=== PATIENT | male | born 1975 | race Caucasian/White ===

== ENCOUNTER 2018-07-18 10:24 | Inpatient (IN) | payer OTHER ==
[~2018-07-18] VITALS: Ht 190.5 cm; Wt 143.8 kg
[2018-07-18] VITALS (16 sets, daily range): BP systolic 123–171; BP diastolic 67–102
[~2018-07-18 10:24] MED LIST: ACETAMINOPHEN650 M5 PO; AMOXICILLIN 50500 MG PO; ANCEF 1GM1 GM/50 M2 IVPB; CLEOCIN HCL300 MG PO; COLACE100 MG PO; CUBICIN IVPB; DOXYCYCLINE 10100 M2 PO; FLEXERIL PO; FLORANEX PACKET1 GM PO; HYDROCODON-ACE1 EAC7 PO; IBUPROFEN 800800 M1 PO; INVANZ 1GM/NS 101 GM IVPB; LANTUS SUBQ; LEVEMIR100 UNIT/1 SQ; LISINOPRIL10 MG PO; LISINOPRIL20 MG PO; NORCO 5-325 TA1 EACH PO; NOVOLIN R100 UNIT/1 SQ; NOVOLOG100 UNIT/1 SUBQ; OXYCODONE-ACET1 EACH PO; PREDNISONE 20 M20 MG PO; PREDNISONE50 MG PO; TUMS PO; VALIUM5 MG PO; VENTOLIN17 GM INH; ZESTRIL10 MG PO; ZPAK PO
[2018-07-18] MEDS ORDERED: LANTUS100 UNIT/M SUBQ (10:32)
[2018-07-18] MEDS ORDERED: LISINOPRIL10 MG PO (10:32)
[2018-07-18] MEDS ORDERED: HUMALOG100 UNIT/1 SUBQ (10:32)
[2018-07-18 10:42] LABS: ABSOLUTE BASOPHILS 0.1 thou/uL (0.0-0.2); ABSOLUTE EOSINOPHILS 0.2 thou/uL (0.0-0.7); ABSOLUTE LYMPHOCYTES 2.3 thou/uL (0.8-5.3); ABSOLUTE MONOCYTES 0.9 thou/uL (0.0-1.2); ABSOLUTE NEUTROPHILS 6.1 thou/uL (1.6-8.1); BASOPHILS 0.6 %; EOSINOPHILS 2.1 %; HEMATOCRIT 37.2 % (42.0-52.0); HEMOGLOBIN 12.8 gm/dL (14.0-18.0); LYMPHOCYTES 24.4 %; MCH 30.7 pg (26.0-34.0); MCHC 34.4 g/dL (28.0-37.0); MCV 89.4 fL (80.0-100.0); MONOCYTES 9.7 %; MPV 8.4 fl. (7.2-11.1); NUCLEATED RBCS 0 /100WBC; PLATELET COUNT* 235 thou/uL (150-400); POLYS 63.2 %; RBC 4.16 mil/uL (4.50-6.00); RDW-CV 13.4 % (10.5-14.5); WBC 9.6 thou/uL (4.0-11.0)
[2018-07-18 10:54] LABS: CALCIUM 8.3 mg/dL (8.5-10.1); CREATININE 1.3 mg/dL (0.6-1.3); POTASSIUM 4.7 mmol/L (3.5-5.1)
[2018-07-18 10:55] LABS: APTT 30.1 Seconds (25.0-31.3); PROTIME 9.9 Seconds (9.20-11.50)
[2018-07-18 11:10] LABS: ALBUMIN 2.6 g/dL (3.4-5.0); CK-MB MASS 15.4 ng/mL (<0.5-3.6); MAGNESIUM 1.9 mg/dL (1.8-2.4); TOTAL BILIRUBIN 0.2 mg/dL (<0.1-1.0)
[2018-07-18 11:12] LABS: TROPONIN-I LEVEL 7.18 ng/mL (<0.06)
--- NOTE | 2018-07-18 17:05 | EKG ---
[place] [address] ELECTROCARDIOGRAM REPORT Name: MARKEL LAZAR Room: [address] ADM IN M.R.#: [id number] Admission: 07/18/18 Attend Phys: Aissatou Stapleton Discharge: Date of : 79 Report #: [id number] THIS REPORT FOR: //name// [facility] ED Test Date: 2018-07-18 Test Time: 10:28:39 Pat Name: MARKEL LAZAR Department: Room: [facility] Gender: M Desk Manager: MEDARDO : 1975 Requested By: Lucian Purvis Order Number: [id number] MD: Antonio Jaramillo Measurements Intervals [place] Rate: 107 P: 65 ME: 140 QRS: 56 QRSD: 106 T: 253 QT: 331 QTc: 442 Interpretive Statements Sinus tachycardia Inferior Q waves noted ST elevation, consider early repolarization Lateral leads are also involved Consider left ventricular hypertrophy Baseline wander in lead(s) V2 Compared to ECG 07/07/2016 15:03:53 Sinus rhythm no longer present Left ventricular hypertrophy no longer present ST (T wave) deviation still present Electronically Signed On 07-18-2018 17:05:27 CDT by Antonio Jaramillo [email or web address] <ELECTRONICALLY SIGNED> By: Antonio Jaramillo MD, FACC 07/18/18 1705 1028 1028 Antonio Jaramillo MD, FACC /EPI
[2018-07-19] VITALS (7 sets, daily range): BP systolic 112–162; BP diastolic 62–102
--- NOTE | 2018-07-19 00:35 | NUR ---
PT UP OUT OF BED AT 2145. L GROIN SOFT NO HEMATOMA. L GROIN DRSG D/I. HYDROCODONE GIVEN FOR BACK PAIN WITH MINIMAL RELIEF. MORPHINE ONE TIME DOSE GIVEN. PT REPORTED PAIN CONTROLLED FROM 04/26 TO 12/25. TELEMETRY SHOWS ST. L FOOT DRSG D/I. PT RESTING WITH EYES CLOSED.
[2018-07-19 05:23] LABS: HEMATOCRIT 35.9 % (42.0-52.0); HEMOGLOBIN 11.8 gm/dL (14.0-18.0); MCH 29.9 pg (26.0-34.0); MCHC 32.9 g/dL (28.0-37.0); MCV 90.8 fL (80.0-100.0); MPV 9.1 fl. (7.2-11.1); RBC 3.96 mil/uL (4.50-6.00); RDW-CV 13.4 % (10.5-14.5); WBC 11.6 thou/uL (4.0-11.0)
--- NOTE | 2018-07-19 05:45 | NUR ---
PT HAD TWO EPISOIDS OF NAUSIA WITH SMALL AMT OF CLEAR EMESIS. ZOFRAN GIVEN THE FIRST EPISOID. PROMETHAZINE GIVEN WITH THE SECOND EPISOID. PT RESTING QUIETLY. ALSO NOTED PT'S RESPIRATIONS WITH SLEEP ARE IRREGULAR. SHALLOW RESPIRATIONS FOLLOWED BY DEEP RESPIRATIONS.
[2018-07-19 05:54] LABS: ALBUMIN 2.5 g/dL (3.4-5.0); ALKALINE PHOSPHATASE 77 U/L (46-116); ANION GAP 9 mmol/L (7-16); BUN 31 mg/dL (7-18); CHLORIDE 105 mmol/L (98-107); CHOLESTEROL 149 mg/dL (<200); CO2 24 mmol/L (21-32); CREATININE 1.5 mg/dL (0.6-1.3); GLUCOSE 237 mg/dL (70-99); HDL CHOLESTEROL 33 mg/dL (>40); LDL CHOLESTEROL 93 mg/dL (<100); POTASSIUM 4.5 mmol/L (3.5-5.1); SGOT 59 U/L (15-37); SGPT 31 U/L (30-65); SODIUM 138 mmol/L (136-145); TC:HDL 4.5 Ratio (Not establshd); TOTAL BILIRUBIN 0.3 mg/dL (<0.1-1.0); TOTAL PROTEIN 6.8 g/dL (6.4-8.2); TRIGLYCERIDE 119 mg/dL (<150); VLDL 24 mg/dL (<40)
[2018-07-19 05:57] LABS: SERUM ASSESSMENT CLEAR; TROPONIN-I LEVEL 14.31 ng/mL (<0.06)
--- NOTE | 2018-07-19 06:52 | NUR ---
PT HAD A THIRD EPISOID OF NAUSIA WITH SMALL AMT CLEAR EMESIS. ZOFRAN GIVEN. SPOKE WITH DR HERNANDEZ RE: EMESIS WITH NO CHEST OR BACK PAIN SINCE LAST NIGHT WHEN ON BED REST. AND REPORTED AM LABS INCLUDING TOPONIN. NO ORDERS AT THIS TIME.
--- NOTE | 2018-07-19 09:21 | NUR ---
ASSUMED CARE OF PT AROUND 0730 THIS AM. REFER TO ASSESSMENT. PT C/O NAUSEA THIS AM. IV ZOFRAN ADMINISTERED. INSTRUCTED TO ATTEMPT TO EAT BREAKFAST. PT HAS NO C/O CP THIS AM. CONCERNED WE ARE GIVING HIM MUCH LESS INSULIN THAN HE REQUIRES AT HOME. WILL DISCUSS WITH PHYSICIAN. AT BEDSIDE WITH MULTIPLE QUESTIONS. NO OTHER CONCERNS AT THIS TIME. CLWR. WCTM.
--- NOTE | 2018-07-19 11:18 | NUR ---
Pt is A&O. Resides at home with . Independent with ADLs, continues to work outside of the home. No DME. No hx of HH or SNF. Goal is home at ok. Following.
--- NOTE | 2018-07-19 12:01 | NUR ---
WOUND CARE NOTE: CONSULT RECEIVED FOR WOUND ON LEFT FOOT. PATIENT PRESENTS WITH A DIABETIC FOOT ULCER TO THE PLANTAR SURFACE OF HIS LEFT FOOT AT THE 3-5 METATARSAL HEADS. TORY-WOUND IS CALLUSED. WOUND BED WITH 90% DRY, BLACK ESCHAR. EDGE OF ESCHAR IS SOFTENING AND YELLOW. ESCHAR IS NOT STABLE. WOUND EDGE WITH THE REMAINING 10% MOIST, RED TISSUE. WOUND IS DRAINING SMALL AMOUNTS OF SEROUS DRAINAGE. WOUND MEASURES 3X3.1X0.4. FAMILY MEMBER IN ROOM STATES THEY HAD BEEN CHANGING IT EVERY OTHER DAY AT HOME WITH [employer]. CLEANSED WOUND WITH WOUND CLEANSER, PATTED DRY. SINCE THE WOUND IS NOW DRY, APPLIED SILVER MED GEL IN HOPES OF SOFTENING THE ESCHAR SINCE IT IS UNSTABLE. COVERED WITH 4X4 THEN ABD. SECURED WITH KERLIX AND ZOË. EDUCATED PATIENT AND FAMILY MEMBER IN ROOM ABOUT IMPORTANCE OF KEEPING OFF ULCERATION IN PROMOTION OF HEALING, COMMUNICATED UNDERSTANDING. ALSO SPOKE TO THEM ABOUT NUTRTION AND IMPORTANCE OF TIGHT BLOOD GLUCOSE CONTROL, COMMUNICATED UNDERSTANDING. SPOKE TO SUGAR REPROCESS OPERATOR HEAD AND UPDATED ON FINDINGS. NO NEW ORDERS AT THIS TIME, HE WILL BE BY LATER TODAY TO ASSESS WOUND. RECOMMEND DEBRIDEMENT TIGHT BLOOD GLUCOSE CONTROL ENCOURAGE GOOD NUTRTION/HYDRATION
--- NOTE | 2018-07-19 12:02 | EKG ---
[place] [address] ELECTROCARDIOGRAM REPORT Name: MARKEL LAZAR Room: [address] ADM IN M.R.#: [id number] Admission: 07/18/18 Attend Phys: Aissatou Stapleton Discharge: Date of : 79 Report #: [id number] THIS REPORT FOR: //name// [facility] Test Date: 2018-07-18 Test Time: 17:06:23 Pat Name: MARKEL LAZAR Department: Room: [address] Gender: M Family Court Counsellor: UN : 1975 Requested By: Paolo Rubio Order Number: [id number] Justo MD: Markel Metz Measurements Intervals [place] Rate: 103 P: 72 MS: 146 QRS: 56 QRSD: 97 T: 240 QT: 337 QTc: 441 Interpretive Statements Sinus tachycardia Inferior infarct, age indeterminate Abnrm T, consider ischemia, anterolateral lds ST elevation, anterior leads Compared to ECG 07/18/2018 10:28:39 ST (T wave) deviation still present Electronically Signed On 07-19-2018 12:01:55 CDT by Markel Mezt [email or web address] <ELECTRONICALLY SIGNED> By: Markel Metz MD, [facility] 07/19/18 1201 1706 1706 Markel Metz MD, [facility] /EPI
--- NOTE | 2018-07-19 12:10 | EKG ---
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 07/19/18 1210 357 7 Markel Metz MD, FACC /EPI
--- NOTE | 2018-07-19 16:57 | NUR ---
PT SOMEWHAT PROGRESSING TOWARDS GOALS THIS SHIFT. PODIATRY CONSULT NOT COMPLETED AT THIS TIME. PT HAS BEEN HAVING NAUSEA. IV PHENERGEN EFFECTIVE AT THIS TIME. PT DROWSY. HAS ONLY TOLERATED SOME ICE CHIPS AND A COUPLE OF BITES OF JELLO. AT BEDSIDE. NO OTHER CONCERNS AT THIS TIME. CLWR. WCTM.
--- NOTE | 2018-07-19 18:34 | NUR ---
DR. CONNELLY TOY PAINTER AT BEDSIDE AND REPORTS WOUND TO E FOOT IS HEALING AND SHOWING PROGRESS. PHYSICIAN HAS NO NEW ORDERS AT THIS TIME.
--- NOTE | 2018-07-19 23:12 | NUR ---
ASSUMED PT CARE. REPORT RECEIVED FROM NURSE. PT IS AOX4 SINUS RYTHM ON THE MONITOR. AT BEDSIDE. IV FLUID. IV LINE PATENT . PHENERGAN GIVEN TO PREVENT NAUSEA AND VOMITING. PT STATES HE FEELS NAUSEOUS. INSULIN ADMINISTERED. WILL CONITNUE TO MONITOR.
[2018-07-20 00:13] VITALS: BP 141/87
[2018-07-20 05:09] LABS: CALCIUM 8.3 mg/dL (8.5-10.1); CREATININE 1.6 mg/dL (0.6-1.3); POTASSIUM 3.8 mmol/L (3.5-5.1)
[2018-07-20 08:27] VITALS: BP 180/108
--- NOTE | 2018-07-20 11:01 | CARD ---
[address] [address] CARDIAC CATH REPORT Name: NAGIMARKEL ALLYSON Room: [address] ADM IN .R.#: [id number] Admission: 07/18/18 Attend Phys: Aissatou Stapleton Discharge: Date of : 79 Report #: [id number] THIS REPORT FOR: //name// APPROVED REPORT Study performed: 07/18/2018 13:18:23 Patient Details Patient Status: In-Patient Room #: 212 The patient is a 42 year-old male Event Personnel Paolo Rubio Postal Sorting Officer, Harry Salamanca (Iliana Florian Angela SUPERVISOR PLASTERING Monitor, Clarissa Ugarte RN RN, Christine Simmons RTR Monitor Procedures Performed ISHA Place w/wo Plasty Single RCA 061101 , Selective Right and Left Coronary AngiographyLeft Heart Cath w/or w/o Coronaries [id number] [facility] Hemostasis w/ Angioseal Indication Non-STEMI Risk Factors Hypercholesterolemia, Hypertension, Diabetes Admission/Lab Medications/Medications given during procedure Aspirin, Platelet Aff. Inhib., Angiomax bolus and infusion Procedure Narrative The patient was brought electively to the Cardiac Catheterization Laboratory and was prepped and draped in a sterile manner. The left femoral was infiltrated with 2% Lidocaine subcutaneous anesthesia. A [place] 6 FR sheath was inserted into the right femoral artery. Coronary angiography was performed using coronary diagnostic catheters. The right coronary system was accessed and visualized with a 6fr JR 4 catheter. The left coronary system was accessed and visualized with a 6fr JL 3.5 catheter. The left ventricle was accessed and visualized with a 6fr Pigtail catheter. Left ventricular/Aortic Valve gradient assessed via catheter pullback. Left ventriculogram was performed in MELARA projection. Pre-demployment femoral angiogram was performed . Closure device was deployed with a 6 Fr Angioseal STS 6Fr. The patient tolerated the procedure well and there were no complications [place] [address] CARDIAC CATH REPORT Name: MARKEL LAZAR Room: [address] IN [facility]#: [id number] Admission: 07/18/18 Attend Phys: Aissatou Stapleton Discharge: Date of : 79 Report #: [id number] Intraoperative Conscious Sedation Sedation start time: 14:13 Case end Time: 15:31 Fentanyl 150 mcg Versed 3 mg Fluoro Time: 14.1 minutes Dose: DAP 878706 cGycm2 2119.11 mGy Contrast Type and Amount: Visipaque 400 ml Coronary Angiography The patient's coronary anatomy is right dominant. Diagnostic Cath Left Main 0% narrowing LAD 90% mid vessel stenosis with 90% stenosis of the proximal portion of the prominent first diagonal branch Circumflex 70% proximal narrowing Right Coronary Large dominant vessel with 90% mid vessel narrowing and local thrombus at the site with 50% narrowing of the proximal portion of the posterior descending branch Left Ventriculography The left ventricle is normal in size with abnormal contractility. The left ventricular ejection fraction is estimated to be 40%. Left ventricular wall motion abnormalities are present. There is no mitral insufficiency. There is hypo- akinesis of the distal one half of the inferior wall Hemodynamics The aortic pressure is 135/86 mmHg with a mean of mmHg. The left ventricular pressure is 137/18 mmHg with a mean of mmHg. The left ventricular end diastolic pressure is 25 mmHg. There was no gradient across the aortic valve upon pullback. PCI Technique Lesion Anticoagulation was achieved with Angiomax. Percutaneous coronary intervention was performed on the mid right coronary artery. The lesion stenosis prior to intervention was 90% with ZEENAT 3 flow. A 6Fr AR 1 Guide Catheter was used to engage the ostium. A IG: ProwaterFlex 180CM Interventional Guidewire was used to cross the lesion. BALLOON DILATION A Balloon catheter Trek RX 2.5 X 12 was inserted and inflated up to 16.00atm for 21seconds. Additional Inflation: 12.00atm for 9seconds. [place] [address] CARDIAC CATH REPORT Name: MARKEL LAZAR Room: [address] IN M.R.#: [id number] Admission: 07/18/18 Attend Phys: Aissatou Stapleton Discharge: Date of : 79 Report #: [id number] STENT DEPLOYMENT A drug-eluting stent Xience Alpine RX 3.25X15 was inserted and inflated up to 12.00atm for 8seconds. Additional Inflation: 16.00atm for 10seconds. Additional Inflation: 18.00atm for 9seconds. POST STENT DEPLOYMENT BALLOON DILATION A Balloon catheter NC Trek RX 3.5 X 8 was inserted and inflated up to 16.00atm for 14seconds. Additional Inflation: 18.00atm for 8seconds. Additional Inflation: 17.00atm for 7seconds. Final angiography reveals 5 % stenosis with ZEENAT 3 flow. Conclusion #1 significant coronary artery disease characterized by the following: A 90% mid LAD stenosis with 90% stenosis of the proximal portion of the prominent first diagonal branch B 70% proximal circumflex narrowing, this being a nondominant vessel C large dominant right coronary artery with 90% stenosis in the midportion with local thrombus at the site and 50% narrowing of the proximal portion of the posterior descending branch #2 moderate impairment in global left ventricular systolic function, estimate ejection fraction being 40% with hypo- akinesis of the distal one half of the inferior wall #3 moderately severe elevation of left ventricular end-diastolic pressure at rest #4 successful percutaneous coronary intervention with deployment of a drug-eluting stent at site of 90% mid right coronary stenosis with 0% residual narrowing no residual thrombus and ZEENAT 3 flow to the distal vessel Recommendations Cardiac Risk Reduction Program Aggressive Medical Therapy Weight Loss Reduction Program [place] [address] CARDIAC CATH REPORT Name: MARKEL LAZAR Room: [address]#: [id number] Admission: 07/18/18 Attend Phys: Aissatou Stapleton Discharge: Date of : 79 Report #: [id number] Aspirin (any) Prasugrel Diagnostic Cath Approved by: Paolo Rubio MD Date/Time: 07/20/2018 11:00:22 <ELECTRONICALLY SIGNED> By: Paolo Rubio MD, FACC 07/20/18 1101 110 110Paolo Rubio MD, FACC /INF
[2018-07-20 11:25] VITALS: BP 180/108
[2018-07-20] MEDS ORDERED: ASPIR 8181 MG PO (11:46)
[2018-07-20] MEDS ORDERED: LIPITOR 20 MG T20 M1 PO (11:47)
[2018-07-20] MEDS ORDERED: CARVEDILOL3.125 MG PO (11:48)
[2018-07-20] MEDS ORDERED: EFFIENT10 MG PO (11:50)
[2018-07-20 12:00] VITALS: BP 152/99
[2018-07-20] MEDS ORDERED: LANTUS SUBQ (12:15)
[2018-07-20 12:48] VITALS: BP 152/99
--- NOTE | 2018-07-20 13:10 | NUR ---
PT AND SPOUSE VERBALIZED UNDERSTANDING OF DC MEDICATIONS AND INSTRUCTIONS. PT WAS EDUCATED ABOUT TAKING PIX OF MED LIST AND DEVICE INFORMATION AND KEEPING IT ON CELL PHONE SO THAT THE INFORMATION IS ALWAYS READILY AVAILABLE. PT REFUSED DOSE OF INSULIN STATING HE WOULD TAKE HIS BLOOD SUGAR WHEN HE GOT HOME AND TAKE INSULIN THEN. PT PROVIDED WITH ANOTHER DOSE OF BETA ISRRAEL PER PHYSICIAN ORDER. PT VSS THIS SHIFT AND NO REPORTS OF PAIN. HOURLY ROUNDING MAINTAINED. PT REQUESTING WHEELCHAIR TO DISCHARGE, WILL GET ONE AND ASSIST PT OUT OF HOSPITAL
--- NOTE | 2018-08-02 18:41 | CON ---
[address] [address] CONSULTATION Name: MARKEL LAZAR Room: [address] IN M.R.#: [id number] Admission: 07/18/18 Attend Phys: Aissatou Stapleton Discharge: 07/20/18 Date of : 79 Report #: [id number] THIS REPORT FOR: //name// CC: Ruma Kay HISTORY OF PRESENT ILLNESS: This is a 42-year-old white male who has been admitted to [facility] for a chief complaint of intermittent chest pain times 1.5 months. He had a stent placed yesterday. HISTORY OF PRESENT ILLNESS: This is a 42-year-old white male, diabetic, who was admitted to [facility] for an NSTEMI. I am being consulted for his left plantar diabetic foot ulcer. The patient and I are very familiar with each other. I have been treating his left diabetic foot ulcer some time now. He has made nice improvements over the last week or so. PAST MEDICAL HISTORY: Is in the chart and will be reviewed. He is diabetic, history of back problems, hypertension. HOME MEDICATIONS: Amoxicillin, lisinopril, insulin. ALLERGIES: Vancomycin. FAMILY HISTORY: Unremarkable. SOCIAL HISTORY: No history of alcohol, tobacco or drug use. REVIEW OF SYSTEMS: Noncontributory. PHYSICAL EXAMINATION: GENERAL: Well-developed, well-nourished white male in no acute distress. EXTREMITIES: Upper extremity has been worked up by the hospitalist in ER and Cardiology. Lower extremity reveals a wound to the plantar left foot that I have been treating. It was significant size, approximately 6 cm in its greatest size, now is approximately 2.5 cm to 3 cm in diameter with no surrounding erythema. It is very healthy looking tissue. No edema in the area. . White blood cell count 11.4. Previous x-rays taken by myself showed no signs of bone involvement. ASSESSMENT: Diabetic foot ulcer, [place] 2[place] [address] CONSULTATION Name: MARKEL LAZAR Room: [address] M.R.#: [id number] Admission: 07/18/18 Attend Phys: Aissatou Stapleton Discharge: 07/20/18 Date of : 79 Report #: [id number] PLAN: We will continue same plan. The patient has been healing quite nicely for the last 2 weeks. He will be discharged probably from the hospital tomorrow and see me in my clinic on Sunday. We shall debride any necrotic tissue. No need for Santyl at this time. We will do the same dressing for Aquacel Ag and foam and then a Joanna dressing. No need for MRI at this time either. The patient has been healing quite nicely and I saw him from the beginning and until now. Thank you for this consultation. Please call if you have any concerns or questions. My longer plan will be a total contact cast and more treatment plans after my debridement in office on Sunday. <ELECTRONICALLY SIGNED> By: Sahw Lainez DPM 08/02/18 1841 [id number] Lainez DPM /nt
== END 2018-07-20 13:25 | disposition home or self-care (01) | DRG 247 ==
LOC: M.ERS 10:24 → M.TBA-ER 12:26 → M.2W 12:26
PROVIDERS: Family Medicine; Internal Medicine; ADMIT Internal Medicine
PROC: 027034Z Dilation of Coronary Artery, One Artery with Drug-eluting Intraluminal Device, Percutaneous Approach (ICD-10-PCS; principal; 2018-07-18)
PROC: B211YZZ Fluoroscopy of Multiple Coronary Arteries using Other Contrast (ICD-10-PCS; principal; 2018-07-18)
PROC: 4A023N7 Measurement of Cardiac Sampling and Pressure, Left Heart, Percutaneous Approach (ICD-10-PCS; principal; 2018-07-18)
PROC: B215YZZ Fluoroscopy of Left Heart using Other Contrast (ICD-10-PCS; principal; 2018-07-18)
DX: I21.4 Non-ST elevation (NSTEMI) myocardial infarction (principal); I10 Essential (primary) hypertension; E11.621 Type 2 diabetes mellitus with foot ulcer; E11.51 Type 2 diabetes mellitus with diabetic peripheral angiopathy without gangrene; Z89.412 Acquired absence of left great toe; Z88.1 Allergy status to other antibiotic agents; Z79.82 Long term (current) use of aspirin; Z79.899 Other long term (current) drug therapy; Z79.4 Long term (current) use of insulin; Z82.49 Family history of ischemic heart disease and other diseases of the circulatory system; Z80.1 Family history of malignant neoplasm of trachea, bronchus and lung

== ENCOUNTER 2018-07-29 07:58 | Observation (INO) | payer OTHER ==
[2018-07-29] VITALS (17 sets, daily range): BP systolic 121–155; BP diastolic 72–817
[~2018-07-29] VITALS: Ht 190.5 cm; Wt 127.0 kg
--- NOTE | ~2018-07-29 | H ---
[address] [address] HISTORY AND PHYSICAL Name: MARKEL LAZAR Room: [address] Apryl Vallejo#: [id number] Admission: 07/29/18 Attend Phys: Paolo Rubio MD, Discharge: 07/30/18 Date of : 79 Report #: [id number] THIS REPORT FOR: //name// Please refer to the History and Physical performed in the physician's office. By: 1618Medical Records Staff LILIA /ALBERT
[~2018-07-29 07:58] MED LIST changes: +ASPIR 8181 MG PO; +CARVEDILOL3.125 MG PO; +EFFIENT10 MG PO; +HUMALOG100 UNIT/1 SUBQ; +LANTUS100 UNIT/M SUBQ; +LIPITOR 20 MG T20 M1 PO
[2018-07-29] MEDS ORDERED: COREG6.25 MG PO (08:25)
[2018-07-29] MEDS ORDERED: LISINOPRIL20 MG PO (08:26)
[2018-07-29] MEDS ORDERED: BACTRIM DS TAB1 EACH PO (08:28)
[2018-07-29 08:36] LABS: HEMATOCRIT 37.9 % (42.0-52.0); HEMOGLOBIN 12.8 gm/dL (14.0-18.0); MCHC 33.7 g/dL (28.0-37.0); MCV 89.1 fL (80.0-100.0); MPV 9.3 fl. (7.2-11.1); RBC 4.25 mil/uL (4.50-6.00); RDW-CV 13.5 % (10.5-14.5); WBC 12.8 thou/uL (4.0-11.0)
[2018-07-29 08:42] LABS: ANION GAP 10 mmol/L (7-16); BUN 32 mg/dL (7-18); CALCIUM 8.8 mg/dL (8.5-10.1); CHLORIDE 104 mmol/L (98-107); CO2 23 mmol/L (21-32); CREATININE 1.6 mg/dL (0.6-1.3); GLUCOSE 135 mg/dL (70-99); POTASSIUM 4.6 mmol/L (3.5-5.1); SODIUM 137 mmol/L (136-145)
[2018-07-29 08:45] LABS: APTT 26.3 Seconds (25.0-31.3); INR 0.9; PROTIME 9.6 Seconds (9.20-11.50)
[2018-07-29 08:46] LABS: ALBUMIN 2.7 g/dL (3.4-5.0); ALKALINE PHOSPHATASE 79 U/L (46-116); CHOLESTEROL 127 mg/dL (<200); HDL CHOLESTEROL 39 mg/dL (>40); LDL CHOLESTEROL 54 mg/dL (<100); SERUM ASSESSMENT Clear; SGOT 18 U/L (15-37); SGPT 28 U/L (30-65); TC:HDL 3.3 Ratio (Not establshd); TOTAL BILIRUBIN 0.2 mg/dL (<0.1-1.0); TOTAL PROTEIN 7.1 g/dL (6.4-8.2); TRIGLYCERIDE 170 mg/dL (<150); VLDL 34 mg/dL (<40)
[2018-07-29] MEDS ORDERED: NOVOLOG100 UNIT/1 SUBQ ×2 (15:54)
--- NOTE | 2018-07-29 18:14 | NUR ---
PT ADMITTED AFTER CARDIAC CATH WITH STENTS X5. L GROIN INSERTION SITE. GAUZE DRESSING WITH SMALL AMOUNT OF BLOOD. SITE SOFT, MILDLY TENDER, NO BRUISING NOTED. TELE SR, HRR. PT LAID WITH L LEG STRAIGHT UNTIL 1800. SULLIVAN REMOVED. PT UP INDEPENDENTLY WITH STEADY GAIT. PT HAS CAST AND WALKING SHOE ON L FOOT. PT REPORTS A DIABETIC ULCER ON BOTTOM OF L FOOT THAT IS MANAGED BY WOUND CARE AT [facility]. UNABLE TO OBTAIN PICTURE OF WOUND D/T CAST. PT C/O CHRONIC PAIN IN LOW BACK. TYLENOL GIVEN WITH PARTIAL RELIEF ON REASSESSMENT. AT BEDSIDE. PT ABLE TO MAKE NEEDS KNOWN, CALL LIGHT IN REACH.
[2018-07-30] VITALS: BP 128/65
[2018-07-30 04:00] VITALS: BP 138/77
[2018-07-30 05:32] LABS: HEMATOCRIT 32.9 % (42.0-52.0); HEMOGLOBIN 11.3 gm/dL (14.0-18.0); MCH 30.7 pg (26.0-34.0); MCHC 34.3 g/dL (28.0-37.0); MCV 89.7 fL (80.0-100.0); MPV 9.2 fl. (7.2-11.1); RBC 3.67 mil/uL (4.50-6.00); RDW-CV 13.2 % (10.5-14.5)
--- NOTE | 2018-07-30 06:14 | NUR ---
PATIENT PARTIALLY PROGRESSING TOWARDS GOALS: PATIENT HAD AN EPISODE OF CHEST PAIN/DISCOMFORT WITH NAUSEA AND DRY HEAVES THIS SHIFT, RELIEVED WITH RELAXATION AND MEDICATION. PATIENT'S REMAINS AT BEDSIDE. HOURLY ROUNDING OBSERVED. CALL LIGHT WITHIN REACH
[2018-07-30 06:24] LABS: ALBUMIN 2.3 g/dL (3.4-5.0); CALCIUM 8.4 mg/dL (8.5-10.1); CREATININE 1.6 mg/dL (0.6-1.3); POTASSIUM 5.1 mmol/L (3.5-5.1); TOTAL BILIRUBIN 0.3 mg/dL (<0.1-1.0); TOTAL PROTEIN 6.2 g/dL (6.4-8.2)
[2018-07-30 06:28] LABS: TROPONIN-I LEVEL 1.15 ng/mL (<0.06)
[2018-07-30 07:45] VITALS: BP 144/84
[2018-07-30 09:56] VITALS: BP 151/92
--- NOTE | 2018-07-30 11:19 | EKG ---
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[facility] 1975 Requested By: Paolo Rubio Order Number: [id number] Reading MD: Marvin Fields Measurements Intervals [place] Rate: 93 P: 97 [place]: 146 QRS: 45 QRSD: 117 T: 251 QT: 367 QTc: 457 Interpretive Statements Sinus rhythm Probable LVH with secondary repol abnrm Inferior infarct, age indeterminate Anterior ST elevation, probably due to LVH Compared to ECG 07/19/2018 03:58:57 Left ventricular hypertrophy now present Possible ischemia no longer present Myocardial infarct finding still present ST (T wave) deviation still present Electronically Signed On 07-30-2018 11:19:24 AFTER SCHOOL COUNSELOR by Marvin Fields [email or web address] <ELECTRONICALLY SIGNED> By: Marvin Fields MD, FACC 07/30/18 1119 0843 0843 Marvin Fields MD, FACC /EPI
--- NOTE | 2018-07-30 11:20 | EKG ---
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[facility] 1975 Requested By: Paolo Rubio Order Number: [id number] Reading MD: Marvin Fields Measurements Intervals [place] Rate: 89 P: 82 [place]: 145 QRS: 48 QRSD: 103 T: 261 QT: 373 QTc: 454 Interpretive Statements Sinus rhythm Probable LVH with secondary repol abnrm Inferior infarct, age indeterminate Anterior ST elevation, probably due to LVH Compared to ECG 07/19/2018 03:58:57 Left ventricular hypertrophy now present Possible ischemia no longer present Myocardial infarct finding still present ST (T wave) deviation still present Electronically Signed On 07-30-2018 11:20:35 VALIDATION TECHNICIAN by Marvin Fields [email or web address] <ELECTRONICALLY SIGNED> By: Marvin Fields MD, FACC 07/30/18 1120 121 1212 Marvin Fields MD, FACC /EPI
--- NOTE | 2018-07-30 11:22 | EKG ---
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 : 1975 Requested By: Paolo Rubio Order Number: [id number] Reading MD: Marvin Fields Measurements Intervals [place] Rate: 101 P: 74 [place]: 147 QRS: 59 QRSD: 112 T: -83 QT: 356 QTc: 462 Interpretive Statements Sinus tachycardia Inferior infarct, age indeterminate Abnrm T, consider ischemia, anterolateral lds Compared to ECG 07/19/2018 03:58:57 Sinus rhythm no longer present ST (T wave) deviation no longer present Myocardial infarct finding still present Possible ischemia still present Electronically Signed On 07-30-2018 11:21:43 ROLLER REPAIRER by Marvin Fields [email or web address] <ELECTRONICALLY SIGNED> By: Marvin Fields MD, FAC 07/30/18 1121 0331 033 Marvin Fields MD, FAC /EPI
--- NOTE | 2018-07-30 16:40 | D ---
[address] [address] DISCHARGE SUMMARY Name: MARKEL LAZAR ALLYSON Room: [address] Apryl Vallejo#: [id number] Admission: 07/29/18 Attend Phys: Paolo Rubio MD, Discharge: 07/30/18 Date of : 79 Report #: [id number] THIS REPORT FOR: //name// CC: Paolo Cosmegie [facility] DATE OF SERVICE: 07/30/2018 FINAL DISCHARGE DIAGNOSES: 1. Unstable angina. 2. Status post recent acute myocardial infarction. 3. Status post prior percutaneous coronary intervention of the right coronary artery with percutaneous coronary intervention of the left anterior descending, diagonal, circumflex, and right coronary artery on 07/29/2018. 4. Type 2 diabetes. 5. Exogenous obesity. 6. Hyperlipoproteinemia. PROCEDURES: 07/29/2018 -- left heart catheterization, selective coronary arteriography and percutaneous coronary intervention to the LAD, first diagonal, mid circumflex and mid right coronary artery. The patient is a very pleasant 42-year-old male with aggressive coronary artery disease who presented approximately 1 week ago with acute inferolateral myocardial infarction and underwent acute intervention to the right coronary artery with one drug-eluting stent deployed. He also had significant LAD, diagonal, circumflex, and right coronary artery stenoses noted at that time. He was left with an ejection fraction of 40-45% with inferolateral hypokinesis. The patient did reasonably well after the initial discharge, but did experience some chest pain consistent with recurrent angina. In that context, he underwent recatheterization on 07/29/2018 and that study revealed 90% bifurcation LAD diagonal disease, 80% tubular mid circumflex disease, and 60-70% narrowing appearing like a plaque protrusion through the previously deployed right coronary artery stent. I deployed one stent in the mid LAD, one in the first diagonal with a crush stent technique and a kissing balloon inflation at the end. I stented the circumflex with a 2.5 x 15 mm Drybranch stent, then I placed one 3.5 x 8 mm Xience Pat stent in the mid right coronary artery. There was a 10% residual LAD, 0% residual diagonal, 10% residual circumflex and 0% residual right coronary narrowing following the final stent deployment with ZEENAT 3 flow to all distal circulations. The patient did well post-procedurally and there was good hemostasis at the left femoral site of catheterization. Laboratory on 07/30/2018 revealed sodium 138, potassium 5.1, BUN 28, creatinine 1.6 (unchanged from preprocedural), white blood cell count 13,000, hemoglobin 11.3, hematocrit 12.9, [place] [address] DISCHARGE SUMMARY Name: MARKEL LAZAR Room: [place] [address] ARJUN Vallejo#: [id number] Admission: 07/29/18 Attend Phys: Paolo Rubio MD, Discharge: 07/30/18 Date of : 79 Report #: [id number] 226,000. Troponin gloria minimally to 1.15. The patient ambulated without difficulty in the hallways and was discharged to home on 07/30/2018 on the following medications: Aspirin 81 mg b.i.d., atorvastatin 40 mg daily, carvedilol 6.25 mg b.i.d., sliding scale insulin, home insulin is NovoLog 35 units a.c. and 75 units of Lantus insulin at bedtime, lisinopril 20 mg daily, prasugrel, Effient 10 mg daily with 30 mg sage-procedural dose on 07/29/2018, Bactrim-DS 1 tablet b.i.d. to complete a previously utilized dose, and p.r.n. sublingual nitroglycerin. The patient is scheduled to return to see my nurse practitioner, Macy Denney, on 08/06/2018 at 0830 and myself on 09/02/2018 at 1030. <ELECTRONICALLY SIGNED> By: Paolo Rubio MD, [facility] 07/30/18 1640 0931 1230Paolo Rubio MD, FACC /nt
--- NOTE | 2018-08-05 13:01 | CARD ---
[address] [address] CARDIAC CATH REPORT Name: MARKEL LAZAR ALLYSON Room: [address] Apryl Vallejo#: [id number] Admission: 07/29/18 Attend Phys: Paolo Rubio MD, Discharge: 07/30/18 Date of : 79 Report #: [id number] THIS REPORT FOR: //name// APPROVED REPORT Study performed: 07/29/2018 09:04:08 Patient Details Patient Status: Out-Patient Room #: The patient is a 42 year-old male Event Personnel Paolo Rubio [facility] Counselor, Rin Peña RN Steel Hanger, Stephenie Victoria Monitor, Genaro Santoyo Scrub Procedures Performed Art Access - L femoral artery* , Selective Right and Left Coronary AngiographyLeft Heart Cath w/or w/o Coronaries [id number] [facility] ISHA Place w/wo Plasty Single DIAG 947170 ISHA Place w/wo Plasty Single LAD 099073 ISHA Place w/wo Plasty Single RCA 143541 ; PCI to CX Indication Unstable angina Risk Factors Family History, Hypercholesterolemia, Hypertension Previous Procedures/Diagnoses Previous PCI, Previous SD Admission/Lab Medications/Medications given during procedure Aspirin, Platelet Aff. Inhib., Angiomax bolus and infusion Procedure Narrative The patient was brought electively to the Cardiac Catheterization Laboratory and was prepped and draped in a sterile manner. The left femoral was infiltrated with 2% Lidocaine subcutaneous anesthesia. A [place] 6 FR sheath was inserted into the left femoral artery. Coronary angiography was performed using coronary diagnostic catheters. The right coronary system was accessed and visualized with a 6fr JR 4 catheter. The left coronary system was accessed and visualized with a JL 3.5 6fr catheter. The left ventricle was accessed and visualized with a 5fr Pigtail catheter. Left ventricular/Aortic Valve gradient assessed [place] [address] CARDIAC CATH REPORT Name: MARKEL LAZAR Room: [address] Apryl MMelina#: [id number] Admission: 07/29/18 Attend Phys: Paolo Rubio MD, Discharge: 07/30/18 Date of : 79 Report #: [id number] Pre-demployment femoral angiogram was performed . Closure device was deployed with a 6 Fr Angioseal STS 6Fr. The patient tolerated the procedure well and there were no complications associated with the procedure. There was no hematoma. Intraoperative Conscious Sedation Sedation start time: 09:34 Case end Time: 11:54 Fentanyl 100 mcg Versed 3 mg Fluoro Time: 38.5 minutes Dose: DAP 347935 cGycm2 5330.69 mGy Contrast Type and Amount: Visipaque 500 ml Coronary Angiography The patient's coronary anatomy is right dominant. Diagnostic Cath Left Main 0% narrowing LAD 60-70% proximal narrowing with 90% mid vessel stenosis and 90% stenosis of the proximal portion of the prominent first diagonal branch Circumflex 80% proximalmid circumflex stenosis Right Coronary Large dominant vessel with 40% proximal narrowing and 75% focal narrowing within a previously deployed mid right coronary stent Left Ventriculography Left Ventriculography was not performed. Hemodynamics The aortic pressure is 162/75 mmHg with a mean of mmHg. The left ventricular pressure is 137/15 mmHg with a mean of mmHg. The left ventricular end diastolic pressure is 29 mmHg. There was no gradient across the aortic valve upon pullback. PCI Technique Lesion Anticoagulation was achieved with Angiomax. Percutaneous coronary intervention was performed on the mid left anterior descending artery segment. The lesion stenosis prior to intervention was 90% with ZEENAT 3 flow. A 6FR XB 3.0 100CM Guide Catheter was used to engage the LCA ostium. A 6FR XB 3.0 100CM Interventional Guidewire was used to cross the lesion. BALLOON DILATION A Balloon catheter Mini Trek RX 2.0 X 12 was [place] [address] CARDIAC CATH REPORT Name: MARKEL LAZAR ALLYSON [address]: [address] [id number] Admission: 07/29/18 Attend Phys: Paolo Rubio MD, Discharge: 07/30/18 Date of : 79 Report #: [id number] to 10.00atm for 9seconds. Additional Inflation: 10.00atm for 14seconds. Additional Inflation: 8.00atm for 12seconds. STENT DEPLOYMENT A drug-eluting stent Vishal RX Stent 2.0X30mm was inserted and inflated up to 8.00atm for 12seconds. Additional Inflation: 10.00atm for 12seconds. Additional Inflation: 10.00atm for 11seconds. Final angiography reveals 0 % stenosis with ZEENAT 3 flow. PCI Technique Lesion 2 Percutaneous Coronary Intervention was performed on the first diagnonal branch segment. The lesion stenosis prior to intervention was 90% with ZEENAT 3 flow. Balloon Dilation A Balloon catheter Trek RX 2.5 X 12 was inserted and inflated up to 16.00atm for 15seconds. Additional Inflation: 20.00atm for 7seconds. Stent Deployment A drug-eluting stent Vishal RX Stent 2.75X8mm was inserted and inflated up to 12atm for 15seconds. Final angiography reveals 0 % stenosis with ZEENAT 3 flow. PCI Technique Lesion Percutaneous coronary intervention was performed on the first diagonal branch segment. BALLOON DILATION A Balloon catheter Trek RX 2.75 X 12 was inserted and inflated up to 10.00atm for 12seconds. Additional Inflation: 12atm for 9seconds. Additional Inflation: 14atm for 11seconds. STENT DEPLOYMENT A drug-eluting stent Vishal RX Stent 2.75X8mm was inserted and inflated up to 10.00atm for 9seconds. Additional Inflation: 12atm for 6seconds. POST STENT DEPLOYMENT BALLOON DILATION A Balloon catheter NC Trek RX 2.75 X 12 was inserted and inflated up to 12atm for 9seconds. Additional Inflation: 12atm for 12seconds. Additional Inflation: 12atm for 9seconds. PCI Technique Lesion [address] [address] CARDIAC CATH REPORT Name: MARKEL LAZAR GENE Room: 227-1 ARJUN TrujilloGaroEliud#: [id number] Admission: 07/29/18 Attend Phys: Paolo Rubio MD, Discharge: 07/30/18 Date of : 79 Report #: [id number] Percutaneous Coronary Intervention was performed on the proximal left anterior descending artery segment. The lesion stenosis prior to intervention was 75% with ZEENAT 3 flow. Balloon Dilation A Balloon catheter Trek RX 2.5 X 12 was inserted and inflated up to 12.00atm for 4seconds. Stent Deployment A drug-eluting stent Olyphant RX Stent 2.75 x 12mm was inserted and inflated up to 12atm for 4seconds. Additional Inflation: 8atm for 9seconds. Additional Inflation: 12atm for 6seconds. Final angiography reveals 0 % stenosis with ZEENAT 3 flow. PCI Technique Lesion 5 Percutaneous Coronary Intervention was performed on the proximalmid circumflex artery segment. The lesion stenosis prior to intervention was 80% with ZEENAT 3 flow. A 6FR XB 3.0 100CM Guide Catheter was used to engage the ostium. A IG: ProwaterFlex 180CM Interventional Guidewire was used to cross the lesion. Stent Deployment A drug-eluting stent Vishal RX Stent 2.5X15mm was inserted and inflated up to 12.00atm for 13seconds. Additional Inflation: 17.00atm for 10seconds. Additional Inflation: 17.00atm for 9seconds. Final angiography reveals 10 % stenosis with ZEENAT 3 flow. PCI Technique Lesion Percutaneous coronary intervention was performed on the mid right coronary artery. The lesion stenosis prior to intervention was 75% with ZEENAT 3 flow. A 6Fr AR 1 Guide Catheter was used to engage the ostium. A IG: ProwaterFlex 180CM Interventional Guidewire was used to cross the lesion. STENT DEPLOYMENT A drug-eluting stent Xience Pat 3.5X8mm was inserted and inflated up to 12atm for 11seconds. Additional Inflation: 14atm for 6seconds. Final angiography reveals 0 % stenosis with ZEENAT 3 flow. Conclusion #1 significant coronary artery disease characterized by the [address] [address] CARDIAC CATH REPORT Name: MARKEL LAZAR Room: [address] Apryl Vallejo#: [id number] Admission: 07/29/18 Attend Phys: Paolo Rubio MD, Discharge: 07/30/18 Date of : 79 Report #: [id number] following: A 60-70% proximal LAD stenosis with 90% mid vessel stenosis and 90% stenosis of the proximal portion of the prominent first diagonal branch B 80% narrowing of the proximalmid circumflex C 75% focal in-stent narrowing of the mid right coronary stent #2 minimal elevation of left ventricular end-diastolic pressure at rest #3 successful percutaneous coronary intervention with deployment of drug-eluting stents in the proximal and mid LAD and first diagonal with 0% residual narrowing at the 3 sites and ZEENAT-3 flow to the distal vasculature #4 successful percutaneous coronary intervention with deployment of drug-eluting stent at site of 80% proximalmid circumflex stenosis with 10% residual narrowing and ZEENAT-3 flow to the distal vessel #5 successful percutaneous coronary intervention with deployment of drug-eluting stent at site of 75% focal mid right coronary in-stent narrowing with 0% residual narrowing and ZEENAT-3 flow the distal vessel Recommendations Cardiac Risk Reduction Program Aggressive Medical Therapy Medications Administered Aspirin (any) Prasugrel Diagnostic Cath Approved by: Paolo Rubio MD Date/Time: 08/05/2018 12:58:32 <ELECTRONICALLY SIGNED> By: Paolo Rubio MD, [facility] 08/05/18 1300 1300 1300Jomin Rubio MD, FACC /INF
== END 2018-07-30 10:30 | disposition home or self-care (01) ==
LOC: M.CL 07:58 → M.TBA-CV 12:34 → M.2W 15:51
PROVIDERS: ADMIT Internal Medicine
DX: I25.110 Atherosclerotic heart disease of native coronary artery with unstable angina pectoris (principal); E11.8 Type 2 diabetes mellitus with unspecified complications; E66.09 Other obesity due to excess calories; E78.5 Hyperlipidemia, unspecified; E78.00 Pure hypercholesterolemia, unspecified; M50.20 Other cervical disc displacement, unspecified cervical region; M54.30 Sciatica, unspecified side; I21.9 Acute myocardial infarction, unspecified; Z68.36 Body mass index [BMI] 36.0-36.9, adult; Z79.82 Long term (current) use of aspirin; Z79.899 Other long term (current) drug therapy; Z98.890 Other specified postprocedural states; Z79.4 Long term (current) use of insulin

== ENCOUNTER → 2018-12-09 | Outpatient (CLI) | payer OTHER ==
[~2018-12-09] MED LIST changes: +BACTRIM DS TAB1 EACH PO; +COREG6.25 MG PO
--- NOTE | 2018-12-09 14:50 | 2DMMODE ---
[place] [address] 2 D/M-MODE ECHOCARDIOGRAM Name: MARKEL LAZAR Room: [facility]#: [id number] Admission: 12/09/18 Attend Phys: Courtney Islas Discharge: Date of : 79 Date of Service: 12/09/18 1450 Report #: [id number] THIS REPORT FOR: //name// APPROVED REPORT Study performed: 12/09/2018 10:11:24 EXAM: Comprehensive 2D, Doppler, and color-flow Echocardiogram Patient Location: Out-Patient BSA: 2.52 HR: 97 bpm BP: 142/86 mmHg Other Information Study Quality: Fair Indications CAD Hypertension/HDD 2D Dimensions IVSd: 12.46 (7-11mm) LVOT Diam: 20.31 (18-24mm) LVDd: 53.96 mm PWd: 11.90 (7-11mm) Ascending Ao: 27.74 (22-36mm) LVDs: 42.60 (25-40mm) Aortic Root: 31.11 mm Volumes Left Atrial Volume (Systole) LA ESV Index: 14.70 mL/m2 Aortic Valve AoV Peak Elmo.: 1.11 m/s AO Peak Gr.: 4.95 mmHg LVOT Max P.61 mmHg AO Mean Gr.: 2.74 mmHg LVOT Mean P.23 mmHg LVOT Max V: 0.81 m/s AO V2 VTI: 17.79 cm LVOT Mean V: 0.50 m/s JONAH (VTI): 2.86 cm2 LVOT V1 VTI: 15.69 cm Mitral Valve MV Decel. Time: 154.31 ms MV E Max Elmo.: 0.94 m/s MV PHT: 44.75 ms MVA (PHT): 4.92 [place]2 [place] [address] 2 D/M-MODE ECHOCARDIOGRAM Name: MARKEL LAZAR Room: [facility]#: [id number] Admission: 12/09/18 Attend Phys: Courtney Islas Discharge: Date of : 79 Date of Service: 12/09/18 1450 Report #: [id number] TDI E/Lateral E': 10.44 E/Medial E': 10.44 Medial E' Elmo.: 0.09 m/s Lateral E' Elmo.: 0.09 m/s Pulmonary Valve PV Peak Elmo.: 0.94 m/s PV Peak Gr.: 3.57 mmHg Tricuspid Valve RAP Estimate: 5.00 mmHg TR Peak Gr.: 23.31 mmHg RVSP: 28.31 mmHg PA Pressure: 28.31 mmHg Left Ventricle The left ventricle is normal size. akinesis of mid and distal anteroseptal wall and apex There is normal left ventricular wall thickness. Left ventricular systolic function is severely decreased. LVEF is 20-25%. The left ventricular diastolic function is normal. Right Ventricle The right ventricle is normal size. The right ventricular systolic function is normal. Atria The left atrium size is normal. The right atrium size is normal. Aortic Valve The aortic valve is normal in structure. No aortic regurgitation is present. There is no aortic valvular stenosis. Mitral Valve The mitral valve is normal in structure. Mild mitral regurgitation. No evidence of mitral valve stenosis. Tricuspid Valve The tricuspid valve is normal in structure. Mild tricuspid regurgitation. Pulmonic Valve The pulmonary valve is normal in structure. There is no pulmonic valvular [place] [address] 2 D/M-MODE ECHOCARDIOGRAM Name: MARKEL LAZAR Room: [facility] Genevieve#: [id number] Admission: 12/09/18 Attend Phys: Courtney Islas Discharge: Date of : 79 Date of Service: 12/09/18 1450 Report #: [id number] The aortic root is normal in size. IVC is normal in size and collapses >50% with inspiration. Pericardium There is no pericardial effusion. <Conclusion> akinesis of mid and distal anteroseptal wall and apex LVEF is 20-25%. Mild mitral regurgitation. <ELECTRONICALLY SIGNED> By: Markel Metz MD, FAC 12/09/18 1450 1450 1450 Markel Metz MD, [facility] /INF
== END ==
LOC: M.CRD 10:00
DX: I08.1 Rheumatic disorders of both mitral and tricuspid valves (principal); I10 Essential (primary) hypertension; I25.110 Atherosclerotic heart disease of native coronary artery with unstable angina pectoris

== ENCOUNTER 2019-02-05 09:12 | Observation (INO) | payer OTHER ==
[2019-02-05] VITALS (10 sets, daily range): BP systolic 108–142; BP diastolic 67–80
[~2019-02-05] VITALS: Ht 190.5 cm; Wt 129.7 kg
[2019-02-05] MEDS ORDERED: ENTRESTO 49 MG1 EACH PO (09:22)
[2019-02-05 09:36] LABS: ABSOLUTE BASOPHILS 0.1 thou/uL (0.0-0.2); ABSOLUTE EOSINOPHILS 0.2 thou/uL (0.0-0.7); ABSOLUTE LYMPHOCYTES 2.9 thou/uL (0.8-5.3); ABSOLUTE MONOCYTES 0.7 thou/uL (0.0-1.2); ABSOLUTE NEUTROPHILS 6.8 thou/uL (1.6-8.1); BASOPHILS 0.9 %; EOSINOPHILS 2.2 %; HEMATOCRIT 42.3 % (42.0-52.0); HEMOGLOBIN 14.2 gm/dL (14.0-18.0); LYMPHOCYTES 27.2 %; MCH 29.5 pg (26.0-34.0); MCHC 33.5 g/dL (28.0-37.0); MCV 88.1 fL (80.0-100.0); MONOCYTES 6.7 %; MPV 10.1 fl. (7.2-11.1); NUCLEATED RBCS 0 /100WBC; PLATELET COUNT* 205 thou/uL (150-400); RDW-CV 13.5 % (10.5-14.5); WBC 10.8 thou/uL (4.0-11.0)
[2019-02-05 09:48] LABS: ANION GAP 10 mmol/L (7-16); BUN 49 mg/dL (7-18); CHLORIDE 105 mmol/L (98-107); CO2 25 mmol/L (21-32); CREATININE 1.7 mg/dL (0.6-1.3); GLUCOSE 224 mg/dL (70-99); POTASSIUM 5.1 mmol/L (3.5-5.1); SODIUM 140 mmol/L (136-145)
[2019-02-05 09:50] LABS: INR 0.9; PROTIME 9.4 Seconds (9.20-11.50)
[2019-02-05 10:02] LABS: ALBUMIN 2.6 g/dL (3.4-5.0); ALKALINE PHOSPHATASE 122 U/L (46-116); LIPASE 148 U/L (73-393); NT-PRO BRAIN NAT PEPTIDE 1558 pg/mL (<300); SGOT 20 U/L (15-37); SGPT 35 U/L (30-65); TOTAL BILIRUBIN 0.3 mg/dL (<0.1-1.0); TOTAL PROTEIN 6.9 g/dL (6.4-8.2); TROPONIN-I LEVEL <0.06 ng/mL (<0.06)
--- NOTE | 2019-02-05 11:15 | NUR ---
PATIENT ADMITTED FROM ER TO 224 TELEPHONE REPORT GIVEN PATIENT TO VIA CART ORIENTED TO AND CALL LIGHT REPORTS CHEST AND BACK PAIN WILL TREAT AND CONTINUE TO MONITOR
[2019-02-06] VITALS (8 sets, daily range): BP systolic 119–158; BP diastolic 62–90
[2019-02-06 03:47] LABS: HEMATOCRIT 38.3 % (42.0-52.0); HEMOGLOBIN 13.1 gm/dL (14.0-18.0); MCHC 34.2 g/dL (28.0-37.0); MCV 87.6 fL (80.0-100.0); RBC 4.37 mil/uL (4.50-6.00); RDW-CV 13.5 % (10.5-14.5); WBC 9.5 thou/uL (4.0-11.0)
[2019-02-06 04:36] LABS: ALBUMIN 2.4 g/dL (3.4-5.0); ALKALINE PHOSPHATASE 109 U/L (46-116); ANION GAP 8 mmol/L (7-16); BUN 46 mg/dL (7-18); CALCIUM 8.5 mg/dL (8.5-10.1); CHLORIDE 108 mmol/L (98-107); CHOLESTEROL 176 mg/dL (<200); CO2 23 mmol/L (21-32); CREATININE 1.5 mg/dL (0.6-1.3); GLUCOSE 188 mg/dL (70-99); HDL CHOLESTEROL 38 mg/dL (>40); LDL CHOLESTEROL 113 mg/dL (<100); SGOT 19 U/L (15-37); SGPT 29 U/L (30-65); SODIUM 139 mmol/L (136-145); TC:HDL 4.6 Ratio (Not establshd); TOTAL BILIRUBIN 0.3 mg/dL (<0.1-1.0); TOTAL PROTEIN 6.3 g/dL (6.4-8.2); TRIGLYCERIDE 128 mg/dL (<150); TROPONIN-I LEVEL 0.08 ng/mL (<0.06); VLDL 26 mg/dL (<40)
[2019-02-06 04:43] LABS: SERUM ASSESSMENT CLEAR
--- NOTE | 2019-02-06 06:55 | NUR ---
ASSUMED PT CARE AT 1930. ASSESSMENT COMPLETED CHARTED. ABLE TO MAKE NEEDS KNOWN. UP WITH STANDBY ASSIST DUE TO AMPUTATED TOES. C/O CHRONIC BACK PAIN BUT REFUSED MEDICATION DUE TO GETTING UP AND IT HELPING HIS BACK PAIN. PT RESTING IN BED AT THIS TIME. IV FLUIDS RUNNING PER P.O. WILL CONTINUE TO MONITOR.
--- NOTE | 2019-02-06 10:46 | NUR ---
LEFT GROIN CDI WIHT NO HEMATOMA. PT ABLE TO TOLERATE AMBULATION AND FOOD. DISCONTINUE IV AND TELE AND WILL DISCHARGE TO HOME PER DR. FRAGOSO.
[2019-02-06] MEDS ORDERED: NITROGLYCERIN0.4 MG SUBLING (11:29)
--- NOTE | 2019-02-06 17:35 | EKG ---
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: : 1975 Requested By: Lucian Purvis Order Number: [id number] MD: Antonio Jaramillo Measurements Intervals [place] Rate: 87 P: 43 TX: 130 QRS: 61 QRSD: 100 T: 150 QT: 385 QTc: 463 Interpretive Statements Sinus rhythm Probable LVH with secondary repol abnrm Abnormal T, lateral leads Compared to ECG 07/30/2018 03:31:25 T-wave abnormality now present Sinus tachycardia no longer present Myocardial infarct finding no longer present Electronically Signed On 02-06-2019 17:35:08 CDT by Antonio Jaramillo [email or web address] <ELECTRONICALLY SIGNED> By: Antonio Jaramillo MD, FAC 02/06/19 1735 0914 0914 Antonio Jaramillo MD, [facility] /EPI
--- NOTE | 2019-02-06 17:39 | EKG ---
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1975 Requested By: Paolo Rubio Order Number: [id number] Justo MD: Antonio Jaramillo Measurements Intervals [place] Rate: 86 P: 83 NE: 154 QRS: 59 QRSD: 101 T: 150 QT: 363 QTc: 434 Interpretive Statements Sinus rhythm Probable LVH with secondary repol abnrm Compared to ECG 07/30/2018 03:31:25 Sinus tachycardia no longer present Myocardial infarct finding no longer present Possible ischemia no longer present Electronically Signed On 02-06-2019 17:39:15 CDT by Antonio Jaramillo [email or web address] <ELECTRONICALLY SIGNED> By: Antonio Jaramillo MD, FACC 02/06/19 1739 0416 0416 Antonio Jaramillo MD, [facility] /EPI
--- NOTE | 2019-02-07 10:51 | CARD ---
[address] [address] CARDIAC CATH REPORT Name: MARKEL LAZAR Room: [address] Apryl Vallejo#: [id number] Admission: 02/05/19 Attend Phys: Paolo Rubio MD, Discharge: 02/06/19 Date of : 79 Report #: [id number] THIS REPORT FOR: //name// APPROVED REPORT Study performed: 02/05/2019 13:05:38 Patient Details Patient Status: Observation Room #: Event Personnel Paolo Rubio MD Procedures Performed Left heart catheterization selective coronary artery and percutaneous coronary intervention to the mid LAD and prominent first diagonal branch Indication Unstable angina Risk Factors Obesity, Hypercholesterolemia, Hypertension, Diabetes Admission/Lab Medications/Medications given during procedure Aspirin, Platelet Aff. Inhib., Angiomax bolus and infusion Procedure Narrative The patient was brought electively to the Cardiac Catheterization Laboratory and was prepped and draped in a sterile manner. The left femoral was infiltrated with 2% Lidocaine subcutaneous anesthesia. A 6 Belarusian sheath was inserted into the left femoral vein. Coronary angiography was performed using coronary diagnostic catheters. The right coronary system was accessed and visualized with a Diagnostic catheter. The left coronary system was accessed and visualized with a Diagnostic catheter. Left ventricular/Aortic Valve gradient assessed via catheter pullback. Pre-demployment femoral angiogram was performed . Closure device was deployed with a 6 Fr Angioseal. There was no hematoma. Coronary Angiography The patient's coronary anatomy is right dominant. Diagnostic Cath Left Main 0% narrowing [facility] [address] [place] [address] CARDIAC CATH REPORT Name: NAGIAMRKEL Kenyetta Room: [address] Apryl Vallejo#: [id number] Admission: 02/05/19 Attend Phys: Paolo Rubio MD, Discharge: 02/06/19 Date of : 79 Report #: [id number] LAD 90% mid LAD stenosis with 90% proximal first diagonal stenosis Circumflex Widely patent proximal circumflex stent; percent narrowing Right Coronary 40% proximal narrowing with 40% distal narrowing and 50% posterior descending branch narrowing Left Ventriculography Left Ventriculography was not performed. Hemodynamics The aortic pressure is 130/70 mmHg with a mean of 82 mmHg. The left ventricular end diastolic pressure is 15 mmHg. There was no gradient across the aortic valve upon pullback. PCI Technique Lesion Anticoagulation was achieved with Angiomax. Percutaneous coronary intervention was performed on the First diagonal branch of the LAD. The lesion stenosis prior to intervention was 90% with ZEENAT 3 flow. A 6 Belarusian XB LAD 3.5 Guide Catheter was used to engage the left ostium. A 014 prowater flex Interventional Guidewire was used to cross the lesion. BALLOON DILATION A Balloon catheter 2.5 x 12 trek was inserted and inflated up to 16atm for 15seconds. STENT DEPLOYMENT A drug-eluting stent 2.5 x 28 mm xience was inserted and inflated up to 14atm for 15seconds. Final angiography reveals 0 % stenosis with ZEENAT flow. PCI Technique Lesion 2 Percutaneous Coronary Intervention was performed on the mid lad. The lesion stenosis prior to intervention was 90% with ZEENAT 3 flow. Balloon Dilation A Balloon catheter 2.0x12 trek was inserted and inflated up to 12atm for 15seconds. Final angiography reveals 30 % stenosis with ZEENAT 3 [place] [address] CARDIAC CATH REPORT Name: MARKEL LAZAR Room: [address] Apryl Vallejo#: [id number] Admission: 02/05/19 Attend Phys: Paolo Rubio MD, Discharge: 02/06/19 Date of : 79 Report #: [id number] #1 significant coronary artery disease characterized by the following: A 90% mid LAD stenosis with 90% proximal prominent first diagonal stenosis B widely patent proximal circumflex stent C dominant right coronary artery with 40% proximal and distal narrowing with 50% posterior descending branch narrowing #2 moderate elevation of left ventricular end-diastolic pressure at rest #3 successful percutaneous coronary intervention with deployment of a drug-eluting stent from the mid LAD into a prominent first diagonal with 0% residual narrowing #4 successful percutaneous coronary angioplasty of the LAD beyond the takeoff the first diagonal with 30% residual narrowing and ZEENAT-3 flow to the distal vessel Recommendations Aggressive Medical Therapy Medications Administered Aspirin (any) Prasugrel Diagnostic Cath Approved by: Paolo Rubio MD Date/Time: 02/07/2019 10:50:55 <ELECTRONICALLY SIGNED> By: Paolo Rubio MD, [facility] 02/07/19 1051 50 105Paolo Rubio MD, FAC /INF
--- NOTE | 2019-02-07 10:56 | H ---
[place] [address] HISTORY AND PHYSICAL Name: MARKEL LAZAR Room: [address] Apryl Vallejo#: [id number] Admission: 02/05/19 Attend Phys: Paolo Rubio MD, Discharge: 02/06/19 Date of : 79 Report #: [id number] THIS REPORT FOR: //name// CC: Paolo Hendrix [facility] DATE OF SERVICE: 02/05/2019 The patient will be admitted to telemetry on 02/05/2019. HISTORY OF PRESENT ILLNESS: The patient is a very pleasant 43-year-old male, difficult to control diabetes and very aggressive coronary artery disease, approximately 6 months status post multivessel stenting with stenting of the mid right coronary artery, proximal circumflex and LAD and diagonal. Recently, he has noted recrudescence of chest pain similar to his prior anginal syndrome following an unstable pattern with associated dyspnea. Risk factors include insulin-dependent diabetes, hypertension, hypercholesterolemia and weight excess. He is not a smoker. MEDICATIONS: Have included dual antiplatelet therapy, insulin both short and long acting, and a statin. PAST MEDICAL HISTORY: Remarkable for the aforementioned risk factors, particularly difficult to control diabetes. SOCIAL HISTORY: The patient is , is a nonsmoker. REVIEW OF SYSTEMS: Remarkable for the following: He has had peripheral vascular disease and required significant foot care on left lower extremity and has peripheral vascular disease afflicting the right lower extremity. PHYSICAL EXAMINATION: GENERAL: Reveals an overweight, middle-aged male. VITAL SIGNS: Blood pressure is 140/70, pulse rate 65, respirations 18 per minute. NECK: Jugular venous pressure is normal. CHEST: Clear. CARDIAC: Reveals normal first and second heart sounds with a question of S4 gallop. ABDOMEN: Moderately obese. EXTREMITIES: Reveal intact femoral, radial pulses. ELECTROCARDIOGRAM: Reveals no acute ischemic changes. LABORATORY DATA: Reveals modest elevation of creatinine [place] [address] HISTORY AND PHYSICAL Name: LAZARMARKEL Kenyetta Room: [address]#: [id number] Admission: 02/05/19 Attend Phys: Paolo Rubio MD, Discharge: 02/06/19 Date of : 79 Report #: [id number] IMPRESSION: 1. Unstable angina. 2. Coronary artery disease, status post multivessel percutaneous coronary intervention. 3. Insulin requiring diabetes. 4. Hypertension. 5. Hypercholesterolemia. RECOMMENDATIONS: Given the recent instability of his clinical syndrome, I would recommend urgent cardiac catheterization to define coronary anatomy and prospects for subsequent therapeutic modification. This has been discussed with the patient and family. Critical care time is 35 minutes from 1525 to 1600. <ELECTRONICALLY SIGNED> By: Paolo Rubio MD, [facility] 02/07/19 1056 1604 [id number] Rubio MD, FACC /nt
--- NOTE | 2019-02-10 12:17 | D ---
[address] [address] DISCHARGE SUMMARY Name: MARKEL LAZAR Room: [address] Apryl Vallejo#: [id number] Admission: 02/05/19 Attend Phys: Paolo Rubio MD, Discharge: 02/06/19 Date of : 79 Report #: [id number] THIS REPORT FOR: //name// CC: Paolo Rubio Ruma [facility] DATE OF SERVICE: 02/06/2019 FINAL DISCHARGE DIAGNOSES: 1. Unstable angina. 2. Coronary artery disease. 3. Status post percutaneous coronary intervention, most recently to the mid left anterior descending and prominent first diagonal. 4. Type 1 diabetes. 5. Hypertension. 6. Hyperlipidemia. PROCEDURES: On 02/05/2019 -- left heart catheterization, selective coronary arteriography and percutaneous coronary intervention to the mid LAD and prominent diagonal with drug-eluting stent placed in the diagonal and angioplasty of the LAD. The patient is a very pleasant 43-year-old male with type 1 diabetes and aggressive coronary artery disease status post multivessel stenting approximately 6 months ago to the LAD, diagonal, proximal circumflex and right coronary artery. He had done well until approximately one month ago when he noted recrudescence of chest pain typical of his angina following an unstable pattern. In this context, I performed recatheterization on 02/05/2019, which revealed widely patent right coronary and circumflex stents with 90% mid LAD in-stent restenosis and 90% restenosis into the first diagonal branch. I performed a complex intervention on the LAD, diagonal, dilating both branches and stenting the LAD into the very large first diagonal and dilating the LAD beyond the origin of the diagonal. There was 0% residual narrowing of the LAD into the diagonal and 20-30% residual narrowing of the dilated modest-sized LAD after the prominent diagonal branch. The patient did well post-procedurally with a troponin being 0.08, an inconsequential rise. Additional labs revealed sodium 139, potassium 5.0, BUN 46, creatinine 1.5, hemoglobin 13.1, white blood cell count 9500 with 173,000 platelets. The patient ambulated without difficulty and there was good hemostasis at the left femoral site of catheterization. He was discharged to home in stable condition on the following medications: [place] [address] DISCHARGE SUMMARY Name: MARKEL LAZAR Room: [address] Apryl Vallejo#: [id number] Admission: 02/05/19 Attend Phys: Paolo Rubio MD, Discharge: 02/06/19 Date of : 79 Report #: [id number] Aspirin 81 mg b.i.d., atorvastatin 40 mg daily, carvedilol 25 mg b.i.d., sliding scale insulin a.c., NovoLog insulin 35 units subcutaneously at bedtime, NovoLog insulin 35 units subcutaneously at bedtime and Lantus insulin 75 units at bedtime, prasugrel 10 mg daily with a 60 mg periprocedural dose having been given, Entresto 49/51 b.i.d. The patient ambulated without difficulty and there was good hemostasis at the left femoral site of catheterization. I will plan to see him in 1 month with an echocardiogram at that juncture. Thus, the patient is discharged to home in stable condition on the aforementioned medications with followup as iterated above. <ELECTRONICALLY SIGNED> By: Paolo Rubio MD, [facility] 02/10/19 1217 0954 [id number] Rubio MD, [facility] /nt
== END 2019-02-06 11:41 | disposition home or self-care (01) ==
LOC: M.ERS 09:12 → M.2W 10:00 → M.TBA-ER 10:00 → M.2W 10:00
PROVIDERS: Family Medicine; ADMIT Internal Medicine
DX: I25.110 Atherosclerotic heart disease of native coronary artery with unstable angina pectoris (principal); I10 Essential (primary) hypertension; E78.00 Pure hypercholesterolemia, unspecified; E66.3 Overweight; E78.5 Hyperlipidemia, unspecified; A41.02 Sepsis due to Methicillin resistant Staphylococcus aureus; M86.9 Osteomyelitis, unspecified; E11.621 Type 2 diabetes mellitus with foot ulcer; Z89.412 Acquired absence of left great toe; Z79.4 Long term (current) use of insulin; Z98.61 Coronary angioplasty status

== ENCOUNTER 2019-05-01 11:55 | Inpatient (IN) | payer OTHER ==
[~2019-05-01] VITALS: Ht 190.5 cm; Wt 138.9 kg
--- NOTE | ~2019-05-01 | OP ---
[address] [address] OPERATIVE REPORT Name: MARKEL LAZAR Room: [address] IN M.R.#: [id number] Admission: 05/01/19 Attend Phys: Demetria Amaya MD Discharge: Date of : 79 Report #: [id number] THIS REPORT FOR: //name// CC: [facility] physician/PCP Paolo Amaya DATE OF SERVICE: 05/07/2019 PREOPERATIVE DIAGNOSIS: Left diabetic foot ulcer with deformity. POSTOPERATIVE DIAGNOSIS: Left diabetic foot ulcer with deformity. PROCEDURE: Left transmetatarsal amputation. ANESTHESIA: General with a local block, 10 mL of 0.5% Marcaine. TOURNIQUET: None. DESCRIPTION OF PROCEDURE: The patient was transported to the operating room and placed on the operating table in supine position. General anesthesia was administered. The left lower extremity was prepped and draped in the usual sterile manner. Attention was directed to the left foot where a fishmouth incision was made. The incision was carried down to bone at the metatarsophalangeal joint. The digits were resected with a Sargent and sent to the back table for gross examination. I was then able to dissect the metatarsals back to about the proximal third of the metatarsals. Then using a sagittal saw, I cut the distal third of the metatarsals. I remodeled the metatarsals. There were no bony prominences medially, laterally, and dorsally. The wound was copiously flushed with normal saline and bacitracin mix, and all capsular tissue and tendon removed with a pair of scissors and a 15-blade. Then, the edges of the wound were remodeled, so good wound closure was easier. Then the wound was closed with 2-0 Mersilene and 2-0 nylon. It was simple suture technique. Dressed with fluffs, Kerlix, and [place] [address] OPERATIVE REPORT Name: MARKEL LAZAR Room: [address] IN [facility]#: [id number] Admission: 05/01/19 Attend Phys: eDmetria Amaya MD Discharge: Date of : 79 Report #: [id number] The left foot looked excellent as well as the dorsal flap and plantar flap and good pink tissue. The patient tolerated the procedure well and left the operating room in stable condition with vital signs and vascular status intact. The patient will follow up in my office after discharge, which will probably be Sunday of next week. The patient understands that needs to be nonweightbearing. He can be weightbearing, standing with the boot on only. He can pivot and bounce as well with the boot on. No dressing changes needed. Please call with any concerns. By: [id number] Lainez DPM /nt
--- NOTE | ~2019-05-01 | CON ---
[facility] [address] [place] [address] CONSULTATION Name: MARKEL LAZAR Room: [address] IN .R.#: [id number] Admission: 05/01/19 Attend Phys: Demetria Amaya MD Discharge: Date of : 79 Report #: [id number] THIS REPORT FOR: //name// CC: [facility] physician/PCP Paolo Amaya DATE OF SERVICE: 05/05/2019 REQUESTING PHYSICIAN: Demetria Martino M.D. REASON FOR CONSULTATION: Acute kidney injury. HISTORY OF PRESENT ILLNESS: The patient is a 43-year-old man. The patient's medical history is significant for diabetes mellitus, history of coronary artery disease, and chronic kidney disease, stage 3. He also has cardiomyopathy. He presents with complaints of not feeling well, having chest discomfort, was diagnosed with sepsis, osteomyelitis, and acute kidney injury. He is scheduled to have left partial foot amputation on Sunday. The patient was receiving Bactrim prior to admission to the hospital. His Bactrim was stopped on admission. He does have confirmed osteomyelitis. MRI was performed. His osteomyelitis involved several bones in his left foot. MEDICATIONS: Medications prior to admission included Entresto, lisinopril, and Bactrim. SOCIAL HISTORY: No current tobacco or alcohol abuse. FAMILY HISTORY: Positive for diabetes. REVIEW OF SYSTEMS: Positive for having very low energy level and some nausea and dyspnea on exertion. Rest of the systems are reviewed and are negative. PHYSICAL EXAMINATION: GENERAL: He is awake, alert, and oriented. VITAL SIGNS: Reviewed. NECK: Fatty. LUNGS: Clear to auscultation bilaterally. CARDIOVASCULAR: Regular rate with diminished heart tones. No pericardial rub. ABDOMEN: Obese, soft. EXTREMITIES: Lower extremities, [place] [address] CONSULTATION Name: MARKEL LAZAR Room: [address]#: [id number] Admission: 05/01/19 Attend Phys: Demetria Amaya MD Discharge: Date of : 79 Report #: [id number] LABORATORY DATA: Lab report revealed serum sodium is 141, potassium is 3.9, chloride is 109, carbon dioxide is 24, BUN is 42, creatinine is 2.3, yesterday was 2.6, baseline creatinine was around 1.6-1.7. Magnesium level was 1.3. Hemoglobin A1c was 8.6. His hemoglobin was 10.0. His urinalysis showed 3+ protein, also presence of bacteria. DIAGNOSTIC DATA: He had renal ultrasound done yesterday that revealed normal-sized kidneys with normal echogenicity, no hydronephrosis. ASSESSMENT: 1. Acute kidney injury, likely due to Bactrim. Also, the fact that he has osteomyelitis could cause acute interstitial nephritis. 2. Chronic kidney disease, stage 3 due to diabetic neuropathy. 3. Diabetes mellitus type 2. 4. Obesity. 5. Coronary artery disease. 6. Cardiomyopathy. 7. Osteomyelitis of the left foot. PLAN: 1. Antibiotics per ID. 2. Avoid Bactrim. 3. Avoid ZOË inhibitors and angiotensin receptor blockers for now, continue with other medications. 4. Follow his labs. Thank you very much for asking my opinion on acute kidney injury of the patient. Consultation was done by me today on 05/05/2019. By: [id number] De La Cruz MD /LUIS ALFREDO
[~2019-05-01 11:55] MED LIST changes: +ENTRESTO 49 MG1 EACH PO; +NITROGLYCERIN0.4 MG SUBLING
[2019-05-01 11:56] VITALS: BP 197/96
[2019-05-01] MEDS ORDERED: LISINOPRIL10 MG PO (12:00)
[2019-05-01 12:19] LABS: HEMATOCRIT 41.2 % (42.0-52.0); HEMOGLOBIN 13.9 gm/dL (14.0-18.0); MCHC 33.7 g/dL (28.0-37.0); MPV 9.2 fl. (7.2-11.1); NUCLEATED RBCS 0 /100WBC; PLATELET COUNT* 187 thou/uL (150-400); RBC 4.63 mil/uL (4.50-6.00); RDW-CV 14.3 % (10.5-14.5); WBC 3.7 thou/uL (4.0-11.0)
[2019-05-01 12:29] LABS: ANION GAP 9 mmol/L (7-16); BUN 38 mg/dL (7-18); CALCIUM 9.2 mg/dL (8.5-10.1); CHLORIDE 105 mmol/L (98-107); CO2 25 mmol/L (21-32); CREATININE 1.8 mg/dL (0.6-1.3); GLUCOSE 267 mg/dL (70-99); POTASSIUM 4.6 mmol/L (3.5-5.1); SODIUM 139 mmol/L (136-145)
[2019-05-01 12:40] LABS: ALBUMIN 3.1 g/dL (3.4-5.0); ALKALINE PHOSPHATASE 116 U/L (46-116); LIPASE 151 U/L (73-393); MAGNESIUM 1.4 mg/dL (1.8-2.4); NT-PRO BRAIN NAT PEPTIDE 220 pg/mL (<300); SGOT 18 U/L (15-37); SGPT 34 U/L (30-65); TOTAL BILIRUBIN 0.5 mg/dL (<0.1-1.0); TOTAL PROTEIN 7.7 g/dL (6.4-8.2); TROPONIN-I LEVEL <0.06 ng/mL (<0.06)
[2019-05-01 12:46] LABS: ABSOLUTE LYMPHOCYTES 0.3 thou/uL (0.8-5.3); ABSOLUTE MONOCYTES 0.1 thou/uL (0.0-1.2); ABSOLUTE NEUTROPHILS 3.3 thou/uL (1.6-8.1); PLATELET ESTIMATE ADEQUATE
[2019-05-01 16:29] VITALS: BP 134/71
--- NOTE | 2019-05-01 17:27 | 2DMMODE ---
[facility] [place] [place] [address] 2 D/M-MODE ECHOCARDIOGRAM Name: MARKEL LAZAR Room: [address] IN [facility]#: [id number] Admission: 05/01/19 Attend Phys: Demetria Amaya, Discharge: Date of : 79 Date of Service: 05/01/19 1727 Report #: [id number] THIS REPORT FOR: //name// APPROVED REPORT Study performed: 05/01/2019 14:10:10 EXAM: Comprehensive 2D, Doppler, and color-flow Echocardiogram Patient Location: In-Patient Room #: ER Status: routine BSA: 2.53 HR: 111 bpm BP: 102/54 mmHg Rhythm: NSR Other Information Study Quality: Adequate Indications Pre-Op CAD Re evaluate EF Left Ventricle The left ventricle is normal size. There are segmental wall motion abnormalities with distal septal and anteroapical hypokinesis. There is normal left ventricular wall thickness. Left ventricular systolic function is mild to moderately decreased. LVEF is 40-45%. Right Ventricle The right ventricle is normal size. The right ventricular systolic function is normal. Atria The left atrium size is normal. The right atrium size is normal. Aortic Valve The aortic valve is normal in structure. Mitral Valve Mild mitral annular calcification. Tricuspid Valve [address] [address] 2 D/M-MODE ECHOCARDIOGRAM Name: MARKEL LAZAR Room: [address] IN M.R.#: [id number] Admission: 05/01/19 Attend Phys: Demetria Amaya, Discharge: Date of : 79 Date of Service: 05/01/191726 Report #: [id number] The tricuspid valve is normal in structure. Pulmonic Valve The pulmonary valve is normal in structure. Great Vessels The aortic root is normal in size. IVC is normal in size and collapses >50% with inspiration. Pericardium There is no pericardial effusion. <Conclusion> The left ventricle is normal size. There is normal left ventricular wall thickness. Left ventricular systolic function is mild to moderately decreased. LVEF is 40-45%. The right ventricle is normal size. The left atrium size is normal. The aortic valve is normal in structure. Mild mitral annular calcification. IVC is normal in size and collapses >50% with inspiration. There is no pericardial effusion. There are segmental wall motion abnormalities with distal septal and anteroapical hypokinesis. <ELECTRONICALLY SIGNED> By: Paolo Rubio MD, [facility] 05/01/197 26 1727 Paolo Rubio MD, FACC /INF
--- NOTE | 2019-05-01 18:06 | NUR ---
VSS, ASSUMED CARE OF PT FROM ER, ASSESSMENT PERFORMED AND CHARTED, FALL PRECAUTIONS IN PLACE AND CALL LIGHT IN REACH, PT IS TRACING SR/ST ON THE MONITOR, ON RA, UP AD SAY AND STTAES PAIN IN SHOULDERS, PT GOAL IS TO LOWER PAIN, HE HAS LEFT FOOT ULCER, PICTUR TAKEN, WILL FOLLOW WITH PLAN OF CARE.
--- NOTE | 2019-05-01 19:27 | EKG ---
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1975 Requested By: Kevin Pitts Order Number: [id number] MD: Antonio Jaramillo Measurements Intervals [place] Rate: 123 P: 66 OK: 138 QRS: 54 QRSD: 101 T: 161 QT: 285 QTc: 408 Interpretive Statements Sinus tachycardia Abnormal T, consider ischemia, diffuse leads Compared to ECG 02/06/2019 04:16:38 T-wave abnormality now present Possible ischemia now present Sinus rhythm no longer present Electronically Signed On 05-01-2019 19:27:30 CDT by Antonio Jaramillo [email or web address] <ELECTRONICALLY SIGNED> By: Antonio Jaramillo MD, [facility] 05/01/19 1927 1156 1156 Antonio Jaramillo MD, [facility] /EPI
[2019-05-01 19:45] VITALS: BP 123/65
[2019-05-01 20:32] LABS: URINE BILIRUBIN NEGATIVE (Negative); URINE BLOOD 1+ (Negative); URINE COLOR YELLOW; URINE GLUCOSE-RANDOM 1+ (Negative); URINE KETONES NEGATIVE (Negative); URINE LEUKOCYTES-REFLEX NEGATIVE (Negative); URINE NITRITE-REFLEX NEGATIVE (Negative); URINE PROTEIN 3+ (Negative); URINE SPECIFIC GRAVITY 1.025 (1.005-1.030); URINE UROBILINOGEN 0.2 E.U./dl (0.2-1.0)
[2019-05-01 20:34] LABS: URINE CLARITY HAZY
[2019-05-01 20:47] LABS: SQUAMOUS 4-10 Moderate /LPF (0-3)
[2019-05-01 20:48] LABS: AMORPHOUS URATES Moderate /LPF (None Seen); CASTS None Seen /LPF (None Seen); URINE RBC None Seen /HPF (0-2); URINE WBC-REFLEX None Seen /HPF (0-5)
[2019-05-02] VITALS: BP 116/64
[2019-05-02 02:08] LABS: GLYCOHEMOGLOBIN (HGB A1C) 8.6 % (4.8-5.6)
[2019-05-02 04:00] VITALS: BP 148/92
[2019-05-02 04:13] LABS: HEMATOCRIT 36.4 % (42.0-52.0); HEMOGLOBIN 12.3 gm/dL (14.0-18.0); MCHC 33.6 g/dL (28.0-37.0); MCV 89.3 fL (80.0-100.0); MPV 9.9 fl. (7.2-11.1); RBC 4.08 mil/uL (4.50-6.00); WBC 11.9 thou/uL (4.0-11.0)
--- NOTE | 2019-05-02 04:15 | NUR ---
ASSUMED CARE OF PT AT 1900. PT IS ALERT AND ORIENTED. VSS. PERRLA. NO COMPLAINTS OF PAIN. PT IS VERY NAUSEOUS. ZOFRAN GIVEN. NO IMPROVEMENT. DR TREVIÑO NOTIFIED. PT IS IN SINUS RYTHM ON THE TELEMETRY. PT IS RESTING COMFORTABLY IN BED. RESPIRATIONS ARE EVEN AND NONLABORED. WILL CONTINUE TO MONITOR PT.
[2019-05-02 04:33] LABS: ALBUMIN 2.6 g/dL (3.4-5.0); CALCIUM 8.1 mg/dL (8.5-10.1); CREATININE 2.2 mg/dL (0.6-1.3); MAGNESIUM 1.3 mg/dL (1.8-2.4); POTASSIUM 4.5 mmol/L (3.5-5.1); TOTAL BILIRUBIN 0.5 mg/dL (<0.1-1.0)
[2019-05-02 07:30] VITALS: BP 113/57
[2019-05-02 11:30] VITALS: BP 137/68
[2019-05-02 15:05] LABS: BE -7.1 mmol/L (-2 to +3); PCO2 27.2 mmHg (35.0-45.0); PO2 84.2 mmHg (75.0-100.0); pH 7.397 (7.340-7.450)
--- NOTE | 2019-05-02 15:24 | NUR ---
Pt is A&O. Resides at home with his . Independent. No DME. Pt was on his way out of room for MRI of foot, CM to complete assessment later
--- NOTE | 2019-05-02 17:25 | NUR ---
PATIENT UP IN ROOM DENIES CP OR SOA. TOLERATED MRI OF FOOT, CONTRAST HELD DUE TO CREATNINE BEING ELEVATED. USING BATHROOM NEEDED. CO PAIN IN BACK AND SHOULDERS CLAIMS THIS IS NORMAL.
[2019-05-02 19:20] VITALS: BP 101/51
[2019-05-03] VITALS: BP 121/67
--- NOTE | 2019-05-03 02:24 | NUR ---
ASSUMED CARE OF PT AT 1900. PT IS ALERT AND OREINTED. VSS. PERRLA. PT REPORTED NAUSEA. PT RECIEVED COMPAZINE FOR NAUSEA. PT IS IN SINUS RYTHM ON THE TELEMETRY. PT IS RESTING COMFORTABLY IN BED. RESPIRATIONS ARE EVEN AND NONLABORED. WILL CONTINUE TO MONITOR PT.
[2019-05-03 04:00] VITALS: BP 120/62
[2019-05-03 08:00] VITALS: BP 143/83
[2019-05-03 12:26] VITALS: BP 118/62
[2019-05-03 15:50] VITALS: BP 111/62
--- NOTE | 2019-05-03 18:24 | NUR ---
RECEIVED REPORT FROM AKOSUA BAUGH. ASSUMED CARE OF PT AROUND 0730. PT A&OX4. CARDIAC MONIOR IN PLACE TRACING SR WITH NO CHANGES THIS SHIFT. AM ASSESSMENT AND VITALS COMPLETED CHARTED. IV INTACT. MEDS PER EMAR. PT TOLERATING DIET THOUGH CONTINUES TO HAVE EPISODES OF NAUSEA- PRN MEDICATION GIVEN AND REGLAN STARTED PER ORDER. PT REPORTED BACK PAIN THIS AM AND RECEIVED PO PAIN MEDICATION WITH RELIEF. PT CURRENTLY SITTING UP IN BEDSIDE CHAIR USING CELL PHONE. CALL LIGHT IS WITHIN REACH. HOURLY ROUNDING PERFORMED. LOW FALL RISK PRECAUTIONS IN PLACE.
[2019-05-03 20:50] VITALS: BP 127/60
[2019-05-04] VITALS: BP 93/56
[2019-05-04 04:00] VITALS: BP 143/78
--- NOTE | 2019-05-04 04:35 | NUR ---
ASSUMED CARE OF PT AT 1900. PT IS ALERT AND ORIENTED. VSS. PERRLA. STEADY GAIT. PT IS IN SINUS RYTHM ON THE TELEMETRY. PT IS RESTING COMFORTABLY IN BED. RESPIRATIONS ARE EVEN AND NONLABORED. WILL CONTINUE TO MONITOR PT.
[2019-05-04 04:46] LABS: CALCIUM 8.2 mg/dL (8.5-10.1); CREATININE 2.6 mg/dL (0.6-1.3); MAGNESIUM 1.7 mg/dL (1.8-2.4); PHOSPHORUS* 3.8 mg/dL (2.5-4.9); POTASSIUM 3.9 mmol/L (3.5-5.1)
[2019-05-04 04:47] LABS: ABSOLUTE EOSINOPHILS 0.1 thou/uL (0.0-0.7); ABSOLUTE LYMPHOCYTES 1.2 thou/uL (0.8-5.3); ABSOLUTE MONOCYTES 0.6 thou/uL (0.0-1.2); ABSOLUTE NEUTROPHILS 4.1 thou/uL (1.6-8.1); BASOPHILS 0.5 %; EOSINOPHILS 1.6 %; HEMATOCRIT 29.5 % (42.0-52.0); LYMPHOCYTES 19.8 %; MCH 30.3 pg (26.0-34.0); MCHC 34.4 g/dL (28.0-37.0); MCV 88.3 fL (80.0-100.0); MONOCYTES 9.8 %; MPV 10.1 fl. (7.2-11.1); NUCLEATED RBCS 0 /100WBC; PLATELET COUNT* 115 thou/uL (150-400); POLYS 68.3 %; RBC 3.34 mil/uL (4.50-6.00); RDW-CV 14.3 % (10.5-14.5); WBC 6.1 thou/uL (4.0-11.0)
[2019-05-04 04:48] LABS: HEMOGLOBIN 10.1 gm/dL (14.0-18.0)
[2019-05-04 08:00] VITALS: BP 142/97
--- NOTE | 2019-05-04 10:20 | NUR ---
ASSUMED CARE OF PT AT 0730. PT RESTING IN CHAIR WAITING FOR BREAKFAST. PT A&0X4, DENIES ANY PAIN OR SHORTNESS OF BREATH. PT COMPLAINS OF NAUSEA-TREATED WITH PRN COMPAZINE WITH RELIEF. PT TRACING SR ON THE PROCEDURE WRITER. ON RA SAT UPPER 90'S. PT UP AD SAY IN ROOM. PT GOAL FOR TODAY IS REPLACE MAGNESIUM PER ELECTROLYTE PROTOCOL, MANAGE NAUSEA AND WOUND CARE. AM ASSESSMENT CHARTED. MEDICATIONS PER MAR. PT REPOSITIONS SELF. HOURLY ROUNDING OBSERVED. BED IN LOW POSITION. CALL LIGHT WITHIN REACH. WILL CONTINUE PLAN OF CARE.
[2019-05-04 11:40] VITALS: BP 151/64
[2019-05-04 12:18] VITALS: BP 151/64
--- NOTE | 2019-05-04 19:18 | NUR ---
NO ACUTE CHANGES THROUGHOUT SHIFT. REFER TO CHARTING. PT SLOWLY PROGRESSING TOWARDS GOALS. PT COMPLAINED OF NAUSEA X 1 THIS AM. TREATED WITH PRN COMPAZINE WITH RELIEF. PT DENIES ANY NAUSEA THIS AFTERNOON. PT NPO AFTER MIDNIGHT FOR GASTRIC EMPTYING TOMORROW 05/05. AGGRASTAT TO START TOMORROW 05/05 AT 0600. WOUND CARE GIVEN TO LEFT FOOT DIABETIC ULCER AND PICTURE TAKEN. MEDICATIONS PER NOV. PT REPOSITIONS SELF. HOURLY ROUNDING OBSERVED. BED IN LOW POSITION. CALL LIGHT WITHIN REACH. WILL CONTINUE PLAN OF CARE.
[2019-05-04 20:00] VITALS: BP 151/79
--- NOTE | 2019-05-04 20:00 | NUR ---
RECEIVED REPORT AND ASSUMED CARE OF PT, ASSESSMENT COMPLETED. PT RESTING BUT EASILY AWAKEN. VOICE RASPY, STATES HE IS LOOSING HIS VOICE. TELEMETRY ON SHOWING SR. NO C/O DISCOMFORT OR NAUSEA. WILL CONT TO MONITOR AND ASSIST NEEDED.
[2019-05-05] VITALS (11 sets, daily range): BP systolic 129–199; BP diastolic 64–110
[2019-05-05 04:57] LABS: ABSOLUTE EOSINOPHILS 0.2 thou/uL (0.0-0.7); ABSOLUTE LYMPHOCYTES 2.1 thou/uL (0.8-5.3); ABSOLUTE MONOCYTES 0.8 thou/uL (0.0-1.2); ABSOLUTE NEUTROPHILS 3.8 thou/uL (1.6-8.1); BASOPHILS 0.6 %; EOSINOPHILS 2.2 %; HEMATOCRIT 29.3 % (42.0-52.0); LYMPHOCYTES 30.6 %; MCH 30.1 pg (26.0-34.0); MCHC 34.1 g/dL (28.0-37.0); MCV 88.1 fL (80.0-100.0); MONOCYTES 11.5 %; NUCLEATED RBCS 0 /100WBC; PLATELET COUNT* 140 thou/uL (150-400); POLYS 55.1 %; RBC 3.33 mil/uL (4.50-6.00); RDW-CV 14.2 % (10.5-14.5); WBC 6.9 thou/uL (4.0-11.0)
[2019-05-05 05:21] LABS: ALBUMIN 2.4 g/dL (3.4-5.0); CALCIUM 8.7 mg/dL (8.5-10.1); CREATININE 2.3 mg/dL (0.6-1.3); POTASSIUM 3.9 mmol/L (3.5-5.1); TOTAL BILIRUBIN 0.4 mg/dL (<0.1-1.0); TOTAL PROTEIN 6.3 g/dL (6.4-8.2)
[2019-05-05 06:44] LABS: ESR (SEDRATE) 122 mm/hr (0-15)
--- NOTE | 2019-05-05 06:54 | NUR ---
AWAKE MOST OF NIGHT. STATES HE JUST DOESN'T FEEL GOOD. HAVING DRY HEAVES, MEDS HELD DUE TO GASTRIC EMPTYING TEST THIS AM. NPO SINCE [place] FOR TEST. NO CHANGE IN ASSESSMENT. GOAL OF SAFETY ACHIEVED. HOURLY ROUNDING OBSERVED. AGRRASTAT IV STARTED.
--- NOTE | 2019-05-05 07:10 | CON ---
[address] [address] CONSULTATION Name: MARKEL LAZAR Room: [address] IN M.Garo.#: [id number] Admission: 05/01/19 Attend Phys: Demetria Amaya MD Discharge: Date of : 79 Report #: [id number] THIS REPORT FOR: //name// CC: [facility] physician/PCP Paolo Amaya DATE OF SERVICE: 05/02/2019 INFECTIOUS DISEASE CONSULTATION ATTENDING PHYSICIAN: Demetria Amaya MD. REASON FOR EVALUATION: Diabetes mellitus complicated by vasculopathy, chronic ulceration involving the plantar aspect of left foot, suspected infectious complication. HISTORY OF PRESENT ILLNESS: Chart reviewed, patient examined. This 43-year-old gentleman with diabetes mellitus dating back over 20 years, insulin-dependent, notes that his blood sugars have been generally fairly well controlled. He has a long history of known vasculopathy including coronary artery disease, previous first and fourth toe amputations including partial metatarsectomies and a longstanding ulceration was admitted through the Emergency Room with complaints of chest-related discomforts and felt some concern for angina. He had associated nausea with dry heaves and admits he has had any fevers, although he admits to some chills. On evaluation, he was found to have lactic acidemia of 2.7 and leukopenia. Chest x-ray was otherwise unremarkable. Urinalysis, no white cells seen. He has had a multifaceted evaluation. Blood and urine cultures are in progress. Empirically placed on therapy with piperacillin and tazobactam. Denies any significant pulmonary-related complaints at this point. No GI complaints other than nausea. No abdominal pain. ALLERGIES: LISTED TO VANCOMYCIN. CURRENT MEDICATIONS: Include lisinopril, atorvastatin, prochlorperazine, furosemide, famotidine, aspirin, carvedilol, Zosyn, p.r.n. analgesics and antiemetics. PAST MEDICAL HISTORY: Diabetes mellitus with significant sequelae including vasculopathy, previous toe amputations, hypertension, and peripheral arterial disease. SOCIAL HISTORY: Nonsmoker, no ethanol, no illicit drug use. FAMILY HISTORY: [place] [address] CONSULTATION Name: MARKEL LAZAR Room: [address] IN [facility]#: [id number] Admission: 05/01/19 Attend Phys: Demetria Amaya MD Discharge: Date of : 79 Report #: [id number] REVIEW OF SYSTEMS: Otherwise unremarkable 10-point review of systems except noted the above in history of present illness. PHYSICAL EXAMINATION: GENERAL: He appears somewhat chronically ill, mildly undernourished, mild distress. VITAL SIGNS: T-max 99.9, more recently 98, pulse 97, respirations 20, blood pressure 113/57. SKIN: Warm, dry, no rashes. HEENT: Normocephalic. Extraocular muscles intact. NECK: Supple. LUNGS: Diminished breath sounds. HEART: Regular. Borderline tachycardic. I do not appreciate a murmur. ABDOMEN: Soft. He has got a dressing over his left foot. GENITOURINARY AND RECTAL: Deferred. LABORATORY DATA: Blood cultures sterile thus far. Electrolytes: Sodium 136, potassium 4.5, chloride 104, bicarbonate is 20, anion gap of 12, BUN and creatinine 40 and 2.2, glucose of 242, albumin 2.6. Total protein 7.0. LFTs normal. CBC: White count 11.9, H and H 12.3 and 36.4, platelets of 143. Lactic acid repeat was 1.8. Echo showed ejection fraction of 40-45%, no effusion, mild mitral annular calcification, otherwise valves are unremarkable. ASSESSMENT: 1. Chronic ulcer, plantar aspect of left foot. 2. The patient with diabetes mellitus. PLAN: We will continue empiric therapy q. 8 dosing interval adjusted for his renal insufficiency. We will have to monitor that expectantly. Wound care as prescribed by Dr. Lainez. We will await cardiac evaluation since he will need surgery when felt to be reasonably safe. <ELECTRONICALLY SIGNED> By: Grey Marquez MD 05/05/19 0710 1251 [id number] Marquez MD /nt
--- NOTE | 2019-05-05 10:00 | NUR ---
ASSUMED CARE OF PT AT 0730. PT RESTING IN BED. PT A&0X4, DENIES ANY PAIN OR SHORTNESS OF BREATH AT THIS TIME. PT NPO FOR GASTRIC EMPTYING STUDY TODAY. AGGRESTAT INFUSING AT 16.7ML/HR. PT BLOOD PRESSURE ELEVATED THIS AM AT 183/102. AM COREG GIVEN. ORDERS RECEIVED FOR PRN HYDRALAZINE. REFER TO EMAR, BLOOD PRESSURE 160'S/80-90'S. ORDERS RECEIVED FOR 40MG LASIX IVP. REFER TO EMAR.PT TRACING SR ON THE VP COMPLIANCE. ON RA SAT UPPER 90'S PT UP AD SAY IN ROOM. PT GOAL FOR TODAY IS MAINTAIN SBP LESS THAN 150, COMPLETE GASTRIC EMPYTING STUDY AND REMAIN FREE FROM PAIN AND NAUSEA. AM ASSESSMENT CHARTED. MEDICATIONS PER NOV. PT REPOSITIONS SELF. HOURLY ROUNDING OBSERVED. BED IN LOW POSITION. CALL LIGHT WITHIN REACH. WILL CONTINUE PLAN OF CARE.
[2019-05-06 00:18] VITALS: BP 146/88
[2019-05-06 04:00] VITALS: BP 154/72
[2019-05-06 05:18] LABS: ABSOLUTE EOSINOPHILS 0.2 thou/uL (0.0-0.7); ABSOLUTE LYMPHOCYTES 2.7 thou/uL (0.8-5.3); ABSOLUTE MONOCYTES 0.9 thou/uL (0.0-1.2); ABSOLUTE NEUTROPHILS 5.6 thou/uL (1.6-8.1); BASOPHILS 0.5 %; HEMATOCRIT 28.8 % (42.0-52.0); HEMOGLOBIN 9.9 gm/dL (14.0-18.0); LYMPHOCYTES 28.4 %; MCH 30.2 pg (26.0-34.0); MCHC 34.3 g/dL (28.0-37.0); MCV 87.9 fL (80.0-100.0); MONOCYTES 9.1 %; MPV 8.9 fl. (7.2-11.1); NUCLEATED RBCS 0 /100WBC; PLATELET COUNT* 170 thou/uL (150-400); RBC 3.28 mil/uL (4.50-6.00); RDW-CV 13.9 % (10.5-14.5); WBC 9.4 thou/uL (4.0-11.0)
--- NOTE | 2019-05-06 05:26 | NUR ---
PT HAS RESTED COMFORTABLY THROUGH OUT NIGHT WITHOUT COMPLAINTS. BP HAS MAINTAINED WNP.PT TO HAVE CONSULT WITH GI THIS AM. CALL LIGHT WITHIN REACH.
[2019-05-06 06:34] LABS: ALBUMIN 2.3 g/dL (3.4-5.0); CALCIUM 8.5 mg/dL (8.5-10.1); MAGNESIUM 2.2 mg/dL (1.8-2.4); POTASSIUM 3.5 mmol/L (3.5-5.1); TOTAL BILIRUBIN 0.3 mg/dL (<0.1-1.0); TOTAL PROTEIN 6.3 g/dL (6.4-8.2)
[2019-05-06 08:00] VITALS: BP 158/80
--- NOTE | 2019-05-06 11:00 | NUR ---
ASSUMED CARE OF PT AT 0730. PT SITTING IN RECLINER WAITING FOR BREAKFAST. PT A&0X4, DENIES ANY PAIN OR NAUSEA AT THIS TIME. PT TRACING SR ON THE AWS CONSULTANT. ON RA SAT UPPER 90'S. PT UP AD SAY IN ROOM. GI CONSULT IN PLACE. AGGRESTAT GTT INFUSING. PT GOAL FOR TODAY IS REMAIN FREE FROM PAIN AND NAUSEA AND GI CONSULT. AM ASSESSMENT CHARTED. MEDICATIONS PER MAR. PT REPOSITIONS SELF. HOURLY ROUNDING OBSERVED. BED IN LOW POSITION. CALL LIGHT WITHIN REACH. WILL CONTINUE PLAN OF CARE.
--- NOTE | 2019-05-06 11:38 | NUR ---
SW followed up with pt to discuss pt plans at dc. Pt expressed hopefulness that he will be able to be as independent as possible at dc. Pt works during the day and pt 14 yr old son lives with them but pt said that he does not want to ask them for any assistance with mobility or ADLs. Pt discussed possibly applying for disability and Medicaid, SW provided referral and resource information. 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 SW discussed possible rehab at dc; pt said he would see how he does no therapy after amputation tomorrow. SW to continue to follow to assist with safe dc planning.
[2019-05-06 12:07] VITALS: BP 126/83
[2019-05-06 15:55] VITALS: BP 169/83
--- NOTE | 2019-05-06 16:53 | NUR ---
NO ACUTE CHANGES THROUGHOUT SHIFT. REFER TO CHARTING. PT DENIES ANY NAUSEA THROUGHOUT SHIFT. PT COMPLAINED OF PAIN TO NECK AND BACK THIS AFTERNOON TREATED WITH PRN TYLENOL WITH RELIEF. CONTINUES TO TRACE SR ON THE CHIEF DESIGN DRAFTER. AGGRESTAT DRIP INFUSING. AGGRESTAT TO STOP 10 HOURS BEFORE SURGERY. SPOKE WITH DR CONNELLY TODAY, SURGERY IS SCHEDULED FOR 11:30 TOMORROW 05/07. PT NPO AFTER MIDNIGHT. GI SEEN PT TODAY. NO NEW ORDERS RECEIVED AT THIS TIME. MEDICATIONS PER NOV. PT REPOSITIONS SELF. HOURLY ROUNDING OBSERVED. BED IN LOW POSITION. CALL LIGHT WITHIN REACH. WILL CONTINUE PLAN OF CARE.
[2019-05-06 21:45] VITALS: BP 167/74
[2019-05-07] VITALS (8 sets, daily range): BP systolic 171–198; BP diastolic 79–100
[2019-05-07 05:38] LABS: ALBUMIN 2.3 g/dL (3.4-5.0); CALCIUM 8.3 mg/dL (8.5-10.1); CREATININE 1.8 mg/dL (0.6-1.3); POTASSIUM 3.6 mmol/L (3.5-5.1); TOTAL BILIRUBIN 0.2 mg/dL (<0.1-1.0); TOTAL PROTEIN 6.4 g/dL (6.4-8.2)
--- NOTE | 2019-05-07 13:03 | H ---
[place] [address] HISTORY AND PHYSICAL Name: MARKEL LAZAR Room: [address] IN ..#: [id number] Admission: 05/01/19 Attend Phys: Demetria Amaya MD Discharge: Date of : 79 Report #: [id number] THIS REPORT FOR: //name// CC: SOFIA physician/PCP Paolo Amaya DATE OF SERVICE: 05/02/2019 INTRODUCTION: This is a 43-year-old white male diabetic with diabetic ulcer on plantar aspect of left foot. The patient was admitted to the hospital for a possible sepsis and chest pain. HISTORY OF PRESENT ILLNESS: This is a 43-year-old white male, who I have been treating for some time for bilateral foot ulcers. Previously, we have decided to do a transmet amputation when he is off his blood thinners for previous cardiac stents. This looked like sometime in July. In the meantime, we will begin local wound care. Previous attempt to do a transmet was significant bleeding and his hemoglobin was very low at this time below as 7, so we avoided doing anything may make to lose more blood. PAST MEDICAL HISTORY: Significant for chest pain, non-ST elevated myocardial infarction, diabetes, high cholesterol, high blood pressure. Two back surgeries for herniated disk and multiple operations for diabetic ketoacidosis. MEDICATIONS: He is taking aspirin, atorvastatin, prasugrel, insulin 75 units at night, Coreg 6.25 b.i.d., sliding scale, nitroglycerin 0.4, lisinopril 10 mg. ALLERGIES: VANCOMYCIN. FAMILY HISTORY: Significant for [place], lung cancer in his father. SOCIAL HISTORY: No history of recreational drugs, alcohol or tobacco. REVIEW OF SYSTEMS: In the chart. PHYSICAL EXAMINATION: GENERAL: Well-developed, well-nourished white male in no acute distress. Upper extremity has been reviewed by the tire maintenance technician and by the motion pictures cartoonist. EXTREMITIES: Lower extremities demonstrate he has a wound to the plantar aspect of the forefoot left side, is approximately 1 cm in diameter. It does tunnel down to the joint. There is some drainage and [place] [address] HISTORY AND PHYSICAL Name: MARKEL LAZAR Room: [address] IN [facility]#: [id number] Admission: 05/01/19 Attend Phys: Demetria Amaya MD Discharge: Date of : 79 Report #: [id number] erythema. X-rays are unclear right now. MRI has been ordered. The patient has a previous hallux amputation and previous met resection at the site. PLAN: Plan is to most likely the very least do a deep debridement of that foot and possibly a transmet at the site to get him off the pre-surgeon do some heparin. The patient and I have been in contact constantly. He has my number, so we can talk. We noticed a very precarious situation. <ELECTRONICALLY SIGNED> By: Shaw Lainez DPM 05/07/19 1303 1230 1345Raedith Lainez DPM /nt
--- NOTE | 2019-05-07 13:51 | NUR ---
PLEASE SEND O.T. RESUME ORDERS WHEN PT. IS MEDICALLY STABLE TO PARTICIPATE IN O.T. SERVICES DUE TO PT. HAVING TRANSMETATARSAL AMPUTATION TODAY. O.T. WILL HOLD AT THIS TIME.
--- NOTE | 2019-05-07 14:40 | EKG ---
[place] [address] ELECTROCARDIOGRAM REPORT Name: MARKEL LAZAR Room: [address] ADM IN .R.#: [id number] Admission: 05/01/19 Attend Phys: Demetria Amaya MD Discharge: Date of : 79 Report #: [id number] THIS REPORT FOR: //name// [facility] Test Date: 2019-05-07 Test Time: 13:52:52 Pat Name: MARKEL LAZAR Department: Room: [address] Gender: M Risk Compliance Manager: : 1975 Requested By: Gregory Collazo Order Number: [id number] Justo MD: Markel Metz Measurements Intervals [place] Rate: 79 P: 53 [place]: 142 QRS: 47 QRSD: 107 T: 132 QT: 402 QTc: 461 Interpretive Statements Sinus rhythm Abnormal inferior Q waves Abnormal T, consider ischemia, lateral leads Compared to ECG 05/01/2019 11:56:16 Sinus tachycardia no longer present T-wave abnormality still present Possible ischemia still present Electronically Signed On 05-07-2019 14:40:10 CDT by Markel Metz [email or web address] <ELECTRONICALLY SIGNED> By: Markel Metz MD, FAC 05/07/19 1440 1352 1352 Markel Metz MD, [facility] /EPI
--- NOTE | 2019-05-07 15:22 | NUR ---
NATIVIDAD asked rehab care assistant at [facility] to check pt insurance too discover whether or not pt would be able to dc to rehab at [facility] if needed. SW to continue to follow to assist with safe dc planning...other possibilities if [facility] rehab is not in network with pt insurance would be: [facility] (both [place] and [facility] locations, [place], [place], [facility], and [facility].
--- NOTE | 2019-05-07 18:45 | NUR ---
PT BACK FROM SX THIS AFTERNOON. DENIES CHEST PAIN. BP STABLE. DENIES N/V. ON RA AND SATURATION IS ABOVE 95%. BP MEDICATION GIVEN ORDERED. WILL CONTINUE TO MONITOR
[2019-05-07] MEDS ORDERED: LASIX 40 MG TAB40 M2 PO (21:42)
--- NOTE | 2019-05-08 01:54 | NUR ---
PT ALERT ORIENTED. POSTOP PARTIAL L FT AMP. SURGICAL DSG IN PLACE. TELEMETRY SHOWS SR. ON RA. PAIN IN LOWER BACK AND R LEG. HYDROCODONE GIVEN. PT STATED HR TOOK LASIX Q HS AT HOME AND WANTED TO START BACK ON IT. DR JIMENEZ NOTIFIED. LASIX ORDERED.
[2019-05-08 04:00] VITALS: BP 190/87
[2019-05-08 04:24] LABS: HEMATOCRIT 31.7 % (42.0-52.0); HEMOGLOBIN 10.6 gm/dL (14.0-18.0); MCH 29.8 pg (26.0-34.0); MCHC 33.5 g/dL (28.0-37.0); MPV 8.9 fl. (7.2-11.1); RBC 3.56 mil/uL (4.50-6.00); RDW-CV 13.8 % (10.5-14.5); WBC 13.2 thou/uL (4.0-11.0)
[2019-05-08 04:42] LABS: ALBUMIN 2.4 g/dL (3.4-5.0); CALCIUM 8.3 mg/dL (8.5-10.1); CREATININE 1.9 mg/dL (0.6-1.3); TOTAL BILIRUBIN 0.2 mg/dL (<0.1-1.0); TOTAL PROTEIN 6.9 g/dL (6.4-8.2)
[2019-05-08 04:46] LABS: POTASSIUM 4.7 mmol/L (3.5-5.1)
--- NOTE | 2019-05-08 07:05 | NUR ---
CHANGE OF SHIFT BEDSIDE REPORT GIVEN PATIENT SEEN IN BED WATCHING TV ASSUMED PATIENT CARE
[2019-05-08 08:00] VITALS: BP 170/75
[2019-05-08 11:00] VITALS: BP 128/67
[2019-05-08 16:00] VITALS: BP 144/71
--- NOTE | 2019-05-08 16:27 | NUR ---
SW met with pt to follow up regarding dc planning and rehab vs home. Pt says he thinks he will be able to dc home and says he feels confident with his knee scooter that he would be able to manage safely in his home environment. Pt said he would maybe consider inpt rehab tomorrow if doctors all think he needs it but he says he's planning on being able to dc home at dc. SW to continue to follow to assist with safe dc planning.
--- NOTE | 2019-05-08 17:06 | CON ---
[address] [address] CONSULTATION Name: MARKEL LAZAR Room: [address] IN .R.#: [id number] Admission: 05/01/19 Attend Phys: Demetria Amaya MD Discharge: Date of : 79 Report #: [id number] THIS REPORT FOR: //name// CC: SOFIA physician/PCP Paolo Amaya DICTATED BY: Kaylene SYKESP DATE OF SERVICE: 05/05/2019 The patient does not currently have a PCP. Please note at the time of this dictation, the patient was seen and physically examined by myself. REASON FOR CONSULTATION: Nausea. HISTORY OF PRESENT ILLNESS: This 43-year-old male who presented to the Emergency Room on 05/01/2019 with 1-1/2 hours prior to arrival, he was having constant, nonpleuritic, nonexertional sensation in the anterior part of his chest that radiated into his left neck, saying it felt like it needed to be stretched or was broken. The patient states he took 2 nitro at home with no improvement in his condition. He does have a history of an IA last July with stents placement and on anticoagulant therapy. He denied any other symptoms at that time including nausea, vomiting, fever or chills and was brought into the Emergency Room for evaluation. Since he has been here, he has had increased nausea and constant. He did have a gastric emptying test, first hour was 78, second hour was 24, third hour was 3% done yesterday. He states today his nausea has significantly improved and not really having any issues with it at this time. He has not ever seen a GI doctor before. ALLERGIES: VANCOMYCIN. MEDICATIONS FROM HOME: Aspirin, atorvastatin, Effient, Lantus, Coreg, NovoLog, Nitrostat, and Zestril. 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 He has had an IA with stent placement. PAST SURGICAL HISTORY: Right great toe amputated, back surgery for herniated disk and stent placement. FAMILY HISTORY: History of colon polyps and maternal [place] [address] CONSULTATION Name: MARKEL LAZAR Room: [address] IN [facility]#: [id number] Admission: 05/01/19 Attend Phys: Demetria Amaya MD Discharge: Date of : 79 Report #: [id number] SOCIAL HISTORY: Denies any alcohol, tobacco or illegal drug use. Prior to July, he did take NSAIDs 2400 mg on a fairly regular basis, but once he got on anticoagulants, he quit taking those. REVIEW OF SYSTEMS: Twelve-point review of systems is essentially negative except what is mentioned in the HPI. PHYSICAL EXAMINATION: VITAL SIGNS: Temperature 36.9, pulse 86, respirations 18, blood pressure 155/80. HEART: Regular rate and rhythm. LUNGS: Diminished, but clear. ABDOMEN: Soft, positive bowel sounds in all 4 quadrants with some slight epigastric tenderness noted to palpation. LABORATORY DATA: Hemoglobin on admission was 13.9, he is 9.9. No overt bleeding noted. White count is 9.4, platelets 170. GFR is 37. BUN is 36 with a creatinine of 2 and LFTs are completely normal. IMPRESSION: 1. Nausea, significantly improved. 2. Epigastric pain. 3. Anemia. 4. Anticoagulant therapy, Effient, secondary to myocardial infarction and stent. 5. Acute kidney injury. 6. Long-term NSAID use, quit last July. PLAN: 1. The patient is having a part of his foot amputated tomorrow. 2. Since nausea is improved, we will wait and see if it returns. If it does, he will likely need an EGD. 3. Further recommendations to be made once Dr. Valle sees the patient later today. Thank you for allowing us to participate in this patient's care. Please do not hesitate to call with any questions in regard to this consult. I agree with above assessment and plan by Kaylene Geiger. Patient's symptoms appear to have resolved completely. Please call us with any questions. <ELECTRONICALLY SIGNED> By: Robert Valle MD 05/08/19 1706 1201 1241Robert Valle MD /nt
[2019-05-08 20:00] VITALS: BP 147/74
[2019-05-09 04:00] VITALS: BP 175/101
--- NOTE | 2019-05-09 04:13 | NUR ---
ASSUMED PT CARE AT APPROX 1930.PT IS AWAKE AND ORIENTED X4. VSS ON ROOM AIR. SURGICAL DRESSING IS INTACT ON LEFT FOOT. ASSESSMENT DONE AND CHARTED. PT C/O LEFT FOOT PAIN PARTIALLY RELIEVED BY HYDROCODONE GIVEN PER NOV. PT IS ABLE TO SLEEP MOST OF THE NIGHT. CALL LIGHT WITHIN REACH. FALL PRECAUTIONS IN PLACE. HOURLY ROUNDING DONE FOR PT SAFETY.
[2019-05-09 07:00] VITALS: BP 161/79
[2019-05-09 09:12] LABS: HEMATOCRIT 33.8 % (42.0-52.0); HEMOGLOBIN 11.3 gm/dL (14.0-18.0); MCH 29.7 pg (26.0-34.0); MCHC 33.4 g/dL (28.0-37.0); MCV 88.9 fL (80.0-100.0); MPV 8.4 fl. (7.2-11.1); RBC 3.8 mil/uL (4.50-6.00); RDW-CV 14.4 % (10.5-14.5); WBC 12.4 thou/uL (4.0-11.0)
[2019-05-09 09:27] LABS: CALCIUM 8.5 mg/dL (8.5-10.1); CREATININE 1.8 mg/dL (0.6-1.3)
--- NOTE | 2019-05-09 13:12 | NUR ---
INITAL ASSESSMENT COMPLETED CHAERTED. VSS. PT IS M/S STATUS. PT DENIES PAIN, CP, SOA, N/V/D. HOURLY ROUNDING AND FALL PRECAUTIONS IN PLACE. CLWR.
[2019-05-09 13:37] VITALS: BP 154/80
--- NOTE | 2019-05-09 16:31 | NUR ---
NATIVIDAD spoke with pt regarding safe dc planning and possible dc on Sunday. Pt wants to dc home vs any rehab and did not have a preference for HH but said he would accept HH if needed. NATIVIDAD explained Dr would recommend HH services to follow and pt agreed. [facility] not in network with pt insurance, [facility] can accept [facility] insurance and pt agrees with [facility]; [facility] called and spoke with Helen in intake and she accepted and said to send everything together, referral and orders. Once available, can fax to [facility] fax number [phone] [facility] ph [phone] main ph [phone] Pt has knee scooter at home. Pt did not express any other dc needs at this time.
[2019-05-09 16:47] VITALS: BP 163/84
[2019-05-09 19:30] VITALS: BP 172/85
[2019-05-10] VITALS (7 sets, daily range): BP systolic 153–190; BP diastolic 79–100
[2019-05-10 04:19] LABS: ABSOLUTE BASOPHILS 0.1 thou/uL (0.0-0.2); ABSOLUTE EOSINOPHILS 0.4 thou/uL (0.0-0.7); ABSOLUTE LYMPHOCYTES 3.2 thou/uL (0.8-5.3); ABSOLUTE MONOCYTES 0.9 thou/uL (0.0-1.2); ABSOLUTE NEUTROPHILS 7.5 thou/uL (1.6-8.1); BASOPHILS 0.6 %; HEMATOCRIT 33.3 % (42.0-52.0); HEMOGLOBIN 11.2 gm/dL (14.0-18.0); LYMPHOCYTES 26.8 %; MCH 29.9 pg (26.0-34.0); MCHC 33.7 g/dL (28.0-37.0); MCV 88.8 fL (80.0-100.0); MONOCYTES 7.3 %; MPV 7.8 fl. (7.2-11.1); NUCLEATED RBCS 0 /100WBC; PLATELET COUNT* 283 thou/uL (150-400); POLYS 62.3 %; RBC 3.75 mil/uL (4.50-6.00); RDW-CV 14.7 % (10.5-14.5); WBC 12.1 thou/uL (4.0-11.0)
[2019-05-10 04:46] LABS: CALCIUM 8.6 mg/dL (8.5-10.1); CREATININE 1.8 mg/dL (0.6-1.3); POTASSIUM 4.4 mmol/L (3.5-5.1)
--- NOTE | 2019-05-10 10:38 | NUR ---
ASSUMED CARE OF PATIENT THIS AM AT 0730. PATIENT IS ALERT AND ORIENTED X 4. HE DENIES PAIN THIS AM. ORIGINAL SURGICAL DRESSING IS INTACT. NO ORDERS FOR DRESSING CHANGES TO LEFT FOOT. IV ANTIBIOTICS INFUSED PER ORDER. PATIENT'S BP CONTINUES ELEVATED THIS AM. HIS MEDICATIONS GIVEN. PATIENT IS UP IN THE CHAIR AT THIS TIME. TELE SHOWS NSR.
[2019-05-10] MEDS ORDERED: ROCEPHIN 11 GM/1001 IV (14:02)
[2019-05-10] MEDS ORDERED: HYDRALAZINE 2525 MG PO (14:02)
[2019-05-10] MEDS ORDERED: IRON325 PO (14:02)
[2019-05-10] MEDS ORDERED: DOXYCYCLINE 10100 MG PO (14:02)
[2019-05-10] MEDS ORDERED: AMLODIPINE BESY10 MG PO (14:03)
[2019-05-10] MEDS ORDERED: PROTONIX40 M2 PO (14:04)
[2019-05-10] MEDS ORDERED: PROBIOTIC1 EAC1 PO (14:04)
[2019-05-10] MEDS ORDERED: MAGNESIUM400 MG PO (14:04)
[2019-05-10] MEDS ORDERED: LANTUS SUBQ (14:05)
[2019-05-10] MEDS ORDERED: THERA M PLUS T1 EAC2 PO (14:05)
[2019-05-10] MEDS ORDERED: NORCO 5-325 TA1 EAC1 PO (14:05)
--- NOTE | 2019-05-10 16:19 | NUR ---
Following for d/c planning needs. Received order from physician to arrange home IVAB and home health. Per previous CM note, referral had been made to [facility]. Spoke with pt. Pt has been on IVAB in the past at least 2 times that he remembers, but he said he does not recall name of companies used and he also said that he had different insurance in the past. Pt has had [facility] in the past, but again that was with different insurance. Pt is agreeable to [facility]. SPoke with Helen at [facility] and they are in network with pt's insurance and are able to provide staff for IVAB. Pt had his dose of IVAB today about 0900. Called [facility] and spoke with pharmacist Lisa. She said they do not have anyone in house today to check benefits, and pt would need to sign agreement to pay for IVAB if his insurance is not in network with [facility]. Explained options to pt of staying at the hospital to get his dose of IVAB on Sunday and then checking insurance coverage for dosage beginning on Sunday, or going home and signing paperwork with [facility] that he would agree to pay co-pay if not in network with insurance. Lisa said she would have 4 doses of antibiotic delivered to pt's home. Pt said he has out of network benefits with his insurance, and will plan on going home today and signing paperwork agreeing to pay for medication if not covered by insurance. Faxed home health/IVAB orders to [facility] and [facility]. No other needs identified. [facility] [phone]; fax [phone] [facility] infusion [phone]; fax [phone]
--- NOTE | 2019-05-12 09:27 | NUR ---
SW called [facility] to follow up on pt benefits; [facility] had not yet completed the process to find out benefits so intake to call SW back and provide information for pt record.
== END 2019-05-10 17:43 | disposition home health service (06) | DRG 854 ==
LOC: M.ERS 11:55 → M.TBA-ER 13:21 → M.2W 13:21
PROVIDERS: Emergency Medicine Emergency Medical Services; Family Medicine; Internal Medicine; Internal Medicine Infectious Disease; Internal Medicine Nephrology; ADMIT Internal Medicine
PROC: 0Y6N0Z9 Detachment at Left Foot, Partial 1st Ray, Open Approach (ICD-10-PCS; principal; 2019-05-07)
PROC: 0Y6N0ZC Detachment at Left Foot, Partial 3rd Ray, Open Approach (ICD-10-PCS; principal; 2019-05-07)
PROC: 0Y6N0ZB Detachment at Left Foot, Partial 2nd Ray, Open Approach (ICD-10-PCS; principal; 2019-05-07)
PROC: 0Y6N0ZD Detachment at Left Foot, Partial 4th Ray, Open Approach (ICD-10-PCS; principal; 2019-05-07)
PROC: 0Y6N0ZF Detachment at Left Foot, Partial 5th Ray, Open Approach (ICD-10-PCS; principal; 2019-05-07)
PROC: 05HY33Z Insertion of Infusion Device into Upper Vein, Percutaneous Approach (ICD-10-PCS; 2019-05-09)
DX: A41.59 Other Gram-negative sepsis (principal); N17.9 Acute kidney failure, unspecified; M86.8X7 Other osteomyelitis, ankle and foot; I13.0 Hypertensive heart and chronic kidney disease with heart failure and stage 1 through stage 4 chronic kidney disease, or unspecified chronic kidney disease; L03.116 Cellulitis of left lower limb; I50.22 Chronic systolic (congestive) heart failure; E11.51 Type 2 diabetes mellitus with diabetic peripheral angiopathy without gangrene; E11.621 Type 2 diabetes mellitus with foot ulcer; I25.10 Atherosclerotic heart disease of native coronary artery without angina pectoris; N18.3 Chronic kidney disease, stage 3 (moderate); E11.22 Type 2 diabetes mellitus with diabetic chronic kidney disease; G89.29 Other chronic pain; M54.9 Dorsalgia, unspecified; E11.40 Type 2 diabetes mellitus with diabetic neuropathy, unspecified; D50.9 Iron deficiency anemia, unspecified; E83.42 Hypomagnesemia; E66.01 Morbid (severe) obesity due to excess calories; B95.62 Methicillin resistant Staphylococcus aureus infection as the cause of diseases classified elsewhere; E11.69 Type 2 diabetes mellitus with other specified complication; I25.5 Ischemic cardiomyopathy; L97.529 Non-pressure chronic ulcer of other part of left foot with unspecified severity; Z95.5 Presence of coronary angioplasty implant and graft; I25.2 Old myocardial infarction; Z68.38 Body mass index [BMI] 38.0-38.9, adult; Z86.14 Personal history of Methicillin resistant Staphylococcus aureus infection; Z89.412 Acquired absence of left great toe; Z79.4 Long term (current) use of insulin; Z79.84 Long term (current) use of oral hypoglycemic drugs; Z79.899 Other long term (current) drug therapy; Z88.1 Allergy status to other antibiotic agents; Z83.3 Family history of diabetes mellitus; Z82.49 Family history of ischemic heart disease and other diseases of the circulatory system; Z80.1 Family history of malignant neoplasm of trachea, bronchus and lung; Z80.0 Family history of malignant neoplasm of digestive organs

== ENCOUNTER → 2020-12-15 | Outpatient (CLI) | payer OTHER ==
[~2020-12-15] MED LIST changes: +ALLOPURINOL 10100 M3 PO; +AMBIEN 10 MG TA10 MG PO; +AMLODIPINE BESY10 MG PO; +BIDIL TABLET1 EACH PO; +DOXYCYCLINE 10100 MG PO; +DULOXETINE HCL60 MG PO; +HYDRALAZINE 2525 MG PO; +IRON325 PO; +LASIX 40 MG TAB40 M2 PO; +MAGNESIUM400 MG PO; +METHOCARBAMOL500 M2 PO; +METOLAZONE 2.52.5 MG PO; +NEURONTIN 400M400 M2 PO; +NORCO 5-325 TA1 EAC1 PO; +NORCO5 PO; +PROBIOTIC1 EAC1 PO; +PROTONIX40 M2 PO; +ROCEPHIN 11 GM/1001 IV; +THERA M PLUS T1 EAC2 PO; +TRAMADOL 50 MG50 MG PO
[2020-12-15 10:11] LABS: HEMATOCRIT 28.5 % (42.0-52.0); HEMOGLOBIN 9.5 gm/dL (14.0-18.0); MCH 30.6 pg (26.0-34.0); MCHC 33.3 g/dL (28.0-37.0); MCV 91.8 fL (80.0-100.0); MPV 8.5 fl. (7.2-11.1); RBC 3.1 mil/uL (4.50-6.00); RDW-CV 14.8 % (10.5-14.5); WBC 13.8 thou/uL (4.0-11.0)
[2020-12-15 10:16] LABS: CALCIUM 7.5 mg/dL (8.5-10.1); CREATININE 3.6 mg/dL (0.6-1.3); POTASSIUM 4.5 mmol/L (3.5-5.1)
== END ==
LOC: M.LAB 09:26
PROVIDERS: ATTEND Podiatrist
DX: Z01.812 Encounter for preprocedural laboratory examination (principal); Z20.822 Contact with and (suspected) exposure to COVID-19

== ENCOUNTER → 2020-12-17 | Day surgery (SDC) | payer OTHER ==
--- NOTE | ~2020-12-17 | OP ---
[address] [address] OPERATIVE REPORT Name: MARKEL LAZAR Room: [facility]#: [id number] Admission: 12/17/20 Attend Phys: DEBORA Cabezsa Discharge: Date of : 79 Report #: [id number] THIS REPORT FOR: cc: Michelle Simpson,Jr Tompkins DPM ~ DATE OF SERVICE: 12/17/2020 SURGEON: Jr Clayton DPM PREOPERATIVE DIAGNOSES: 1. Diabetic ulceration, third toe, right foot. 2. Hammertoes 3, 4 and 5, right foot. POSTOPERATIVE DIAGNOSES: 1. Diabetic ulceration, third toe, right foot. 2. Hammertoes 3, 4 and 5, right foot. PROCEDURES: Amputation, third, fourth and fifth toes, right foot. ANESTHESIA: General anesthetic with local anesthetic block. ESTIMATED BLOOD LOSS: Minimal. COMPLICATIONS: None apparent. DESCRIPTION OF PROCEDURE: The patient was taken to the OR and placed on the table in supine position. Following anesthetic administered per the Anesthesia Department, a local anesthetic block was performed about the right foot and ankle using 50:50 mixture of 1% lidocaine plain and 0.5% Marcaine plain. The right foot was then prepped and draped in the usual aseptic technique. The foot was exsanguinated using an Esmarch bandage and the pneumatic ankle tourniquet was raised to approximately 250 mmHg. Attention was directed to the right foot where it was noted that the patient has already had the first and second toes amputated. A fishmouth incision was placed over the remaining third, fourth and fifth toes on the right foot. The incision was made to encompass these toes. The incision was then deepened down to the bony structures. Bleeders were cauterized as necessary. The toes were then disarticulated at the respective metatarsophalangeal joints and the toes were removed in their entirety and will be sent to pathology. Once again, bleeders were cauterized as necessary. Necrotic tissue was excised as necessary. The wound was then flushed with copious amounts of normal saline solution. The skin incision was then reapproximated using simple interrupted sutures of 3-0 nylon. The incision was then covered [place] [address] OPERATIVE REPORT Name: MARKEL LAZAR Room: [facility]#: [id number] Admission: 12/17/20 Attend Phys: DEBORA Cabezas Discharge: Date of : 79 Report #: [id number] Adaptic, followed by a mildly compressive bandage. The pneumatic tourniquet was released and all signs of normal blood flow returned to the digits. The patient seemed to tolerate this procedure well and left the OR in stable condition via stretcher accompanied by the Anesthesia Department. The patient will be given the usual postoperative instructions. He will be followed up in the office in 5 days. By: 1202 1237Artking Clayton DPM /juancarlos
--- NOTE | 2020-12-17 10:05 | EKG ---
[place] [address] ELECTROCARDIOGRAM REPORT Name: SIMON LAZAR Room: [facility]#: [id number] Admission: 12/17/20 Attend Phys: Jr Clayton, Discharge: Date of : 79 Date of Service: 12/17/20903 Report #: [id number] THIS REPORT FOR: //name// [facility] Test Date: 2020-12-17 Test Time: 09:04:09 Pat Name: SIMON LAZAR Department: Room: Gender: Hazardous Material Technician: : 1975 Requested By: Jr Clayton Order Number: [id number] Reading MD: Simon Metz Measurements Intervals [place] Rate: 90 P: 84 [place]: 162 QRS: 42 QRSD: 100 T: 160 QT: 382 QTc: 468 Interpretive Statements Sinus rhythm Probable LVH with secondary repol abnrm Anterior ST elevation, probably due to LVH Compared to ECG 05/07/2019 13:52:52 Left ventricular hypertrophy now present Electronically Signed On 12-17-2020 10:04:54 CDT by Simon Metz [email or web address] <ELECTRONICALLY SIGNED> By: Simon Metz MD, [facility] 12/17/20 1004 0904 0904 Simon Metz MD, [facility] /EPI
--- NOTE | 2020-12-21 18:06 | PATH ---
[address] [address] PATHOLOGY RPT PROCEDURE Name: MARKEL LAZAR Room: [facility] M.R.#: [id number] Admission: 12/17/20 Date of : 79 Discharge: Report #: [id number] Path Case #: [id number] [facility] Accession Number: [id number] . 01 Material submitted: . toe - 3RD,4TH,5TH TOES RIGHT FOOT. Modifiers: right, third, fourth . 01 Clinical history: . AMPUTATION OF TOES INFECTED TOES RIGHT FOOT 3, 4 AND 5 . 02 Diagnosis: Third, fourth, fifth toes, right foot: - Three benign toes including phalangeal bones with nonspecific ulceration of distal third toe and no definite osteomyelitis identified. Disarticulation margins of all three toes free of osteomyelitis. . (YOLANDA:mmharper; 12/21/2020) QLM 12/21/2020 1640 Local . 02 Electronically signed: . Valeriy Jason MD, Pathologist NPI- [id number] . 01 Gross description: . The specimen is received in formalin, labeled "Markel Lazar, third, fourth, fifth toes right foot". Received are three toes, which are connected to each other, measuring 5.9 x 4.7 x 2.2 cm in greatest dimensions. All bone margins are smooth and concave in appearance, consistent with disarticulation. The bone margins are inked as follows: Toe 3-black, toe 4-blue, toe 5-yellow. The nails are present displaying a pale hand, grossly unremarkable to light hand, thickened appearance. At the distal aspect of toe 3, there is a well-circumscribed, flat and light hand lesion measuring 0.9 x 0.8 cm, which is 2.6 cm from the closest skin margin. The specimen is submitted representatively as follows: . A1-A3 full-thickness longitudinal cross-section through toe 3, submitted from proximal to distal aspects, following decalcification A4 longitudinal cross-section through bone margin of toe 4, following decalcification A5 longitudinal cross section through bone margin of toe 5, following decalcification. (CAA; 12/20/2020) QAC/QAC 12/20/2020 1127 Local . 02 Pathologist provided ICD-10: L97.519 . 02 [place] [address] PATHOLOGY RPT PROCEDURE Name: LAZARMARKEL [facility] [id number] Admission: 12/17/20 Date of : 79 Discharge: Report #: [id number] Path Case #: [id number] CPT . 232637, [id number] Specimen Comment: A courtesy copy of this report has been sent to [phone] Specimen Comment: Report sent to Performed at: [address] [facility] [address], [place], [place] [id number] MD Micah Sims MD Phone: [phone] Performed at: [address] [facility] [address] [place] [id number] MD Valeriy Jason MD Phone: [phone]
== END | disposition home or self-care (01) ==
LOC: M.SUR 05:23
PROVIDERS: ATTEND Podiatrist
DX: E11.621 Type 2 diabetes mellitus with foot ulcer (principal); L97.519 Non-pressure chronic ulcer of other part of right foot with unspecified severity; M20.41 Other hammer toe(s) (acquired), right foot; I13.0 Hypertensive heart and chronic kidney disease with heart failure and stage 1 through stage 4 chronic kidney disease, or unspecified chronic kidney disease; E11.22 Type 2 diabetes mellitus with diabetic chronic kidney disease; N18.9 Chronic kidney disease, unspecified; I50.9 Heart failure, unspecified; I25.10 Atherosclerotic heart disease of native coronary artery without angina pectoris; D50.9 Iron deficiency anemia, unspecified; E66.01 Morbid (severe) obesity due to excess calories; I73.9 Peripheral vascular disease, unspecified; M54.9 Dorsalgia, unspecified; G89.29 Other chronic pain; Z98.890 Other specified postprocedural states; Z79.899 Other long term (current) drug therapy; Z88.8 Allergy status to other drugs, medicaments and biological substances

== ENCOUNTER 2021-05-16 22:02 | Observation (INO) | payer OTHER ==
[~2021-05-16] VITALS: Ht 190.5 cm; Wt 142.9 kg
[2021-05-16 22:20] VITALS: BP 120/57
[2021-05-16 22:38] LABS: ABSOLUTE BASOPHILS 0.1 thou/uL (0.0-0.2); ABSOLUTE EOSINOPHILS 0.2 thou/uL (0.0-0.7); ABSOLUTE LYMPHOCYTES 1.2 thou/uL (0.8-5.3); ABSOLUTE MONOCYTES 0.7 thou/uL (0.0-1.2); ABSOLUTE NEUTROPHILS 11.6 thou/uL (1.6-8.1); BASOPHILS 0.8 %; EOSINOPHILS 1.4 %; HEMATOCRIT 35.3 % (42.0-52.0); HEMOGLOBIN 11.8 gm/dL (14.0-18.0); LYMPHOCYTES 8.8 %; MCH 31.4 pg (26.0-34.0); MCHC 33.3 g/dL (28.0-37.0); MCV 94.3 fL (80.0-100.0); MONOCYTES 5.2 %; MPV 7.7 fl. (7.2-11.1); NUCLEATED RBCS 0 /100WBC; PLATELET COUNT* 147 thou/uL (150-400); POLYS 83.8 %; RBC 3.74 mil/uL (4.50-6.00); RDW-CV 14.2 % (10.5-14.5); WBC 13.8 thou/uL (4.0-11.0)
[2021-05-16 22:43] LABS: CALCIUM 6.4 mg/dL (8.5-10.1); CREATININE 7.7 mg/dL (0.6-1.3); POTASSIUM 3.2 mmol/L (3.5-5.1)
[2021-05-16 22:53] LABS: ALBUMIN 2.9 g/dL (3.4-5.0); MAGNESIUM 1.8 mg/dL (1.8-2.4); TOTAL BILIRUBIN 0.4 mg/dL (<0.1-1.0); TOTAL PROTEIN 7.2 g/dL (6.4-8.2)
[2021-05-17] MEDS ORDERED: GRALISE600 MG PO (00:58)
[2021-05-17] MEDS ORDERED: HYDRALAZINE 5050 MG PO (01:00)
[2021-05-17] MEDS ORDERED: HYDRALAZINE 2525 MG PO (01:00)
[2021-05-17] MEDS ORDERED: LUNESTA3 MG PO (01:06)
[2021-05-17] MEDS ORDERED: VITAMIN D (01:07)
[2021-05-17] MEDS ORDERED: LANTUS SUBQ (01:08)
[2021-05-17] MEDS ORDERED: HUMALOG100 UNIT/1 SUBQ (01:09)
[2021-05-17] MEDS ORDERED: IMDUR 30 MG TAB30 M1 PO (01:09)
[2021-05-17] MEDS ORDERED: METHOCARBAMOL500 M2 PO (01:10)
[2021-05-17] MEDS ORDERED: LINZESS145 MCG PO (01:10)
[2021-05-17] MEDS ORDERED: RENVELA0.8 GM PO (01:11)
[2021-05-17 05:00] VITALS: BP 135/67
[2021-05-17 09:45] VITALS: BP 135/67
[2021-05-17 09:56] VITALS: BP 135/67
[2021-05-17] MEDS ORDERED: CEFDINIR300 MG PO (09:59)
[2021-05-17 10:13] VITALS: BP 136/61
--- NOTE | 2021-05-17 10:14 | EKG ---
[place] [address] ELECTROCARDIOGRAM REPORT Name: MARKEL LAZAR Room: [address]#: [id number] Admission: 05/17/21 Attend Phys: Demetria Amaya, Discharge: Date of : 79 Date of Service: 05/16/212215 Report #: [id number] THIS REPORT FOR: //name// [facility] ED Test Date: 2021-05-16 Test Time: 22:16:09 Pat Name: MARKEL LAZAR Department: Room: [facility] Gender: M Bill Recapitulation Clerk: ALENA : 1975 Requested By: Candice Phan Order Number: [id number] MD: Markel Metz Measurements Intervals [place] Rate: 87 P: 86 [place]: 166 QRS: 48 QRSD: 105 T: 145 QT: 430 QTc: 518 Interpretive Statements Sinus rhythm Abnormal T, consider ischemia, lateral leads Prolonged QT interval Compared to ECG 12/17/2020 09:04:09 Prolonged QT interval now present Electronically Signed On 05-17-2021 10:14:19 CDT by Markel Metz [email or web address] <ELECTRONICALLY SIGNED> By: Markel Metz MD, [facility] 05/17/21 1014 15 15 Markle Metz MD, [facility] /EPI
--- NOTE | 2021-05-19 17:11 | CON ---
[address] [address] CONSULTATION Name: MARKEL LAZAR Room: [address] Apryl Vallejo#: [id number] Admission: 05/17/21 Attend Phys: Demetria Amaya MD Discharge: 05/17/21 Date of : 79 Report #: [id number] THIS REPORT FOR: cc: Michelle Simpson Ahmad W. DO Liston, Michael J. MD [facility] ~ cc: Michelle Simpson DO, Paolo Rubio MD [facility] DATE OF CONSULTATION: 05/17/2021 CARDIOLOGY CONSULTATION INDICATION: Syncope. HISTORY OF PRESENT ILLNESS: The patient is a very pleasant 45-year-old gentleman with history of coronary artery disease with multiple interventions in the past. He also has end-stage renal disease and is on peritoneal dialysis. Yesterday evening, the patient had 2 episodes of syncope. The patient was getting up from the restroom to go to his bedroom when he blacked out. He fell to the ground without injury. He then got up to go to bed and had a second syncopal episode. At that time, he presented to the Emergency Room. He apparently had hypertension according to the EMS providers. He has been relatively normotensive here in the Emergency Room. He has ruled out with a series of 3 ultrasensitive troponins. EKG is unremarkable. He has been treated recently for peritonitis with antibiotics and his peritoneal dialysate. He states that he has two days of antibiotics left. He is without other complaint at this time. He is not having chest pain. He denies shortness of breath. PAST MEDICAL HISTORY: 1. Coronary artery disease with previous history of myocardial infarction and percutaneous coronary intervention to the LAD and diagonal as well as circumflex and right coronary artery. 2. Ischemic cardiomyopathy with improved EF on most recent echocardiogram. 3. Chronic systolic heart failure. 4. Essential hypertension. 5. Type 2 diabetes mellitus with long-term use of insulin. 6. Hypercholesterolemia. 7. End-stage renal disease, on peritoneal dialysis. 8. Peripheral arterial disease with previous toe amputations. 9. Osteomyelitis. 10. Diabetic foot ulcers. 11. History of MRSA in 2013. FAMILY HISTORY: Positive for premature atherosclerotic [place] [address] CONSULTATION Name: MARKEL LAZAR Room: [address] Apryl Vallejo#: [id number] Admission: 05/17/21 Attend Phys: Demetria Amaya MD Discharge: 05/17/21 Date of : 79 Report #: [id number] SOCIAL HISTORY: The patient is a lifelong nonsmoker, does not drink alcohol. HOME MEDICATIONS: Atorvastatin 40 mg every day, carvedilol 25 mg b.i.d., duloxetine 30 mg daily, Lunesta 2 mg at bedtime, furosemide 40 mg b.i.d., gabapentin 600 mg b.i.d., hydralazine 50 mg b.i.d. and 75 mg at bedtime, hydrocodone/acetaminophen 5/325 one tablet q.6 hours p.r.n., Lispro insulin subcutaneous before bedtime, isosorbide mononitrate 30 mg daily, Linzess 145 mcg oral daily, methocarbamol 500 mg t.i.d., metolazone 2.5 mg daily, Renvela 0.8 grams oral t.i.d., tramadol 50 mg t.i.d. p.r.n., vitamin D supplement 50,000 units weekly. ALLERGIES: VANCOMYCIN. REVIEW OF SYSTEMS: As per HPI, otherwise unremarkable. PHYSICAL EXAMINATION: VITAL SIGNS: Blood pressure 135/67, pulse 89 and regular. GENERAL: This is a very pleasant gentleman who is in no distress. Mood and affect appropriate. HEENT: The patient is wearing glasses. Extraocular muscles intact. Mucous membranes are moist. NECK: Shows no jugular venous distention. CHEST: Reveals clear lung lama without wheezes or rales. CARDIAC: Reveals a regular rhythm with normal S1 and S2. I do not appreciate gallop or murmur. ABDOMEN: Reveals mild tenderness with positive bowel sounds. There is no rebound. EXTREMITIES: Shows no edema. The patient has amputations of 4 feet. SKIN: Dry. LABORATORY DATA: Reviewed. Sodium 141, potassium 3.2, chloride 103, bicarbonate 21, BUN 85, creatinine 7.7, serum glucose 160. LFTs within normal limits. High sensitivity troponins, 31, 32 and 33. White blood cell count 13.8, hemoglobin 11.8, platelet count 147,000. Chest x-ray shows some mild atelectasis, right base, otherwise appears clear. IMPRESSION AND RECOMMENDATIONS: 1. Syncope, likely secondary to orthostasis. I am having the patient's orthostatics checked at this time. We will bolus with 500 mL normal saline. Telemetry monitoring has shown no arrhythmias. 2. Coronary artery disease, presently stable. He is having no symptoms to suggest angina or acute coronary syndrome. He is on appropriate medications as outlined above. [address] [address] CONSULTATION Name: MARKEL LAZAR Room: [address] Apryl Vallejo#: [id number] Admission: 05/17/21 Attend Phys: Demetria Amaya MD Discharge: 05/17/21 Date of : 79 Report #: [id number] 3. Type 2 diabetes, appears stable at this time. 4. Hypertension. Blood pressure adequately controlled at this point in time. I have asked him to reduce his hydralazine to 25 mg t.i.d. Continue carvedilol at current dose. 5. End-stage renal disease, on peritoneal dialysis. The patient appears to be doing well with this at home. At this point in time, the patient appears stable for discharge from a cardiac standpoint. Keep followup with Dr. Rubio as scheduled. <ELECTRONICALLY SIGNED> By: Antonio Jaramillo MD, FACC 05/19/21 [id number] [id number] Jaramillo MD, FACC /nt
== END 2021-05-17 10:25 | disposition home or self-care (01) ==
LOC: M.ERS 22:02 → M.TBA-ER 05-17 00:52
PROVIDERS: Emergency Medicine; ADMIT Internal Medicine; ATTEND Internal Medicine
DX: R07.89 Other chest pain (principal); I12.9 Hypertensive chronic kidney disease with stage 1 through stage 4 chronic kidney disease, or unspecified chronic kidney disease; N18.6 End stage renal disease; Z20.822 Contact with and (suspected) exposure to COVID-19; I21.4 Non-ST elevation (NSTEMI) myocardial infarction; I25.110 Atherosclerotic heart disease of native coronary artery with unstable angina pectoris; E11.10 Type 2 diabetes mellitus with ketoacidosis without coma; I73.9 Peripheral vascular disease, unspecified; Z98.890 Other specified postprocedural states; Z79.4 Long term (current) use of insulin; Z79.899 Other long term (current) drug therapy; Z88.1 Allergy status to other antibiotic agents